=== PATIENT | male | born 1965 | race Caucasian/White ===

== ENCOUNTER 2020-12-04 19:02 | Emergency (ER) | payer MEDICAID, SELFPAY ==
--- NOTE | ~2020-12-04 | XR_ITS ---
EXAMINATION: XR ANKLE, LEFT CLINICAL INFORMATION: Left ankle pain. Difficulty ambulating. COMPARISON: None TECHNIQUE: AP, lateral, and mortise views of the left ankle. FINDINGS: The bony alignments are intact. The cortices are intact. Enthesopathy is noted at the insertional site of the Achilles tendon to the calcaneus and at the insertional site of the plantar fascia to the calcaneus. XR/XR ankle LT 2V IMPRESSION: 1. Posterior calcaneal spur and enthesopathy at the insertional site of the Achilles tendon to the calcaneus. 2. Radiographically unremarkable left ankle.
[2020-12-04 19:04] VITALS: BP 179/104; PULSE 73; RESP 18; TEMP 36.7; O2SAT 98; BMI 30.4
--- NOTE | 2020-12-04 20:26 | ED_ITS ---
HPI - Extremity Problem General Chief complaint: Extremity Problem Stated complaint: leg pain Time Seen by Provider: 12/04/20 20:26 Source: patient Limitations: no limitations History of Present Illness HPI Narrative: This is a patient who has noted pain in his left heel area upon weight-bearing for the last few days. Says the pain is not there when he does not have weight on the heel that is severe when he is bearing weight. He denies any injury. He denies a redness or swelling. He has history of hypertension and hypercholesterolemia Related Data Previous Rx's Medication Instructions Recorded ibuprofen 800 mg PO Q8H PRN #30 tab 12/04/20 Allergies Allergy/AdvReac Type Severity Reaction Status Date / Time No Known Allergies Allergy Verified 12/04/20 19:07 Review of Systems Constitutional: Constitutional: Denies fever(s) Musculoskeletal: Comments: Left heel pain PMFSH Past Medical History Medical History (Updated 12/04/20 @ 20:31 by Owen Giles MD) Broken foot HTN (hypertension) Social History Social History Advance Directives: No Physical Exam Vital Signs: Vital Signs: Last Vital Signs Temp 98.0 F 12/04/20 19:04 Pulse 73 12/04/20 19:04 Resp 18 12/04/20 19:04 BP 179/104 H 12/04/20 19:04 Pulse Ox 98 12/04/20 19:04 Body Mass Index 30.4 MDM - Extremity (Nontraumatic) MDM Narrative Medical decision making narrative: Patient with pain to his left heel area, nontraumatic. No erythema, warmth, swelling. X-ray did show a bone spur the insertion of the Achilles tendon, as well as 1 on the underside of the heel. Will have the patient be nonweightbearing for 7 days and take ibuprofen, follow- up with orthopedics Imaging Data Left ankle: Radiologist's impression: The bony alignments are intact. The cortices are intact. Enthesopathy is noted at the insertional site of the Achilles tendon to the calcaneus and at the insertional site of the plantar fascia to the calcaneus. XR/XR ankle LT 2V IMPRESSION: 1. Posterior calcaneal spur and enthesopathy at the insertional site of the Achilles tendon to the calcaneus. 2. Radiographically unremarkable left ankle. Discharge Plan Discharge Clinical Impression: Bone spur of left foot Patient Disposition: Home, Self-Care Additional Instructions: Use the crutches to avoid weight-bearing for the next 5-7 days. Take ibuprofen as prescribed. Follow-up with orthopedics. Prescriptions: New ibuprofen 800 mg tablet 800 mg PO Q8H PRN (Reason: pain) Qty: 30 RF: 0 Referrals: Lela Dumont MD [Physician] - 2 days (Call Sunday for an appointment in the next week or so) Interventions: ED Discharge Assessment Last Done: 12/04/20 20:41 Discharge Date/Time: 12/04/20 20:44
== END 2020-12-04 20:44 | disposition home or self-care (01) ==
LOC: HO.ED 20:31
PROVIDERS: Emergency Provider Emergency Medicine
DX: M77.52 Other enthesopathy of left foot and ankle (principal); I10 Essential (primary) hypertension
CPT/HCPCS: 73600; 99283

== ENCOUNTER 2021-05-25 15:05 | Emergency (ER) | payer MEDICAID, SELFPAY ==
[2021-05-25 17:27] VITALS: BP 222/123; PULSE 96; RESP 16; TEMP 36.7; O2SAT 96; BMI 44.1
[2021-05-25 18:05] LABS: MANUAL DIFF FLAG NO
[2021-05-25 18:06] LABS: Basophils Percent Auto 0.1 % (0-2); Hematocrit 45.5 % (42.0-52.0); Hemoglobin 14.9 g/dl (14.0-18.0); Imm Gran Abs Auto 0.04 X10*3/uL (0.00-0.03); Imm Gran Pct Auto 0.5 % (0.0-0.4); Lymphocytes Absolute Auto 0.5 X10*3/uL (1.2-4.9); Mean Corpuscular HGB Conc 32.7 g/dl (31.0-36.0); Mean Corpuscular Hemoglobin 29.3 pg (27.0-33.0); Mean Corpuscular Volume 89.4 fL (80.0-98.0); Mean Platelet Volume 10.1 fL (9.4-12.4); Monocytes Absolute Auto 0.8 X10*3/uL (0.1-1.2); Monocytes Percent Auto 10.4 % (2-11); Neutrophils Absolute Auto 6.6 x10*3/uL (2.0-8.3); Platelet Count 237 X10*3/uL (160-400); Red Blood Count 5.09 X10*6/uL (4.60-5.80); Red Cell Distribution Width 12.2 % (11.0-16.0)
[2021-05-25 18:20] LABS: Anion Gap 11 (12-20); Blood Urea Nitrogen 12 mg/dL (9-16); Calcium 9.7 mg/dL (8.4-10.2); Carbon Dioxide 28 mmol/L (22-29); Chloride 103 mmol/L (96-108); Creatinine Clr Calc Pharmacy 102.8; Estimated Glomerular Filt Rate > 60; Glucose Random 98 mg/dL (60-115); Sodium 138 mmol/L (135-145)
== END 2021-05-26 00:31 | disposition left against medical advice (07) ==
LOC: HO.ED 05-26 00:22
PROVIDERS: Emergency Provider Emergency Medicine
DX: M54.50 Low back pain, unspecified (principal); I10 Essential (primary) hypertension; Z79.899 Other long term (current) drug therapy; Z91.14 Patient's other noncompliance with medication regimen
CPT/HCPCS: 36415; 80048; 85025; 99282; 99283

== ENCOUNTER 2022-05-29 15:37 | Emergency (ER) | payer MEDICAID, SELFPAY ==
[2022-05-29 17:16] VITALS: BP 218/113; PULSE 64; RESP 16; TEMP 36.4; O2SAT 98; BMI 29.8
--- NOTE | 2022-05-29 17:16 | ED_ITS ---
HPI - Allergic Reaction General Chief complaint: Skin/Abscess/Foreign Body Stated complaint: rash on back Time Seen by Provider: 05/29/22 17:21 Source: patient Mode of arrival: ambulatory Limitations: no limitations History of Present Illness HPI narrative: 56-year-old male with a past medical history is hypertension although not compliant presenting to the ER with complaints of itchy rash to his lower back that started a few days ago worse today. Denies any new substances. Denies any dizziness, chest pain, change in vision, shortness of breath, nausea/vomiting, abdominal pain, back pain, urinary symptoms or any other symptoms complaints or concerns at this time. Reports he does not remember what blood pressure medication he was on pain MD complaint: other (Rash) Onset (ago): day(s) (Few days) Exposure: unknown Symptoms: rash and itching Severity: mild Treatment prior to arrival: none Previous Allergic Reaction History: none Related Data Previous Rx's Medication Instructions Recorded ibuprofen 800 mg tablet 800 mg PO Q8H PRN pain #30 tabs 12/04/20 hydrocortisone 2.5 % topical 1 appl topical QD-TID PRN skin 05/29/22 ointment irritation #454 grams lisinopril 10 1 tab PO DAILY blood pressure #30 05/29/22 mg-hydrochlorothiazide 12.5 mg tabs tablet prednisone 20 mg tablet 40 mg PO DAILY 5 days #10 tabs 05/29/22 Allergies Allergy/AdvReac Type Severity Reaction Status Date / Time No Known Allergies Allergy Verified 12/04/20 19:07 Review of Systems Review of Systems: Constitutional : No Fever, No Chills , no body aches, no recent illness Head/Face: No facial swelling, No facial redness ENT/Mouth : No oral/throat swelling, No Hoarseness, No Swallowing Difficulty Eyes: No Eye Pain, No Swelling, No Redness Cardiovascular : No Chest Pain, No SOB, No palpitations Respiratory : No Cough, No Sputum, No Wheezing, No Smoke Exposure, No Dyspnea Gastrointestinal : No Nausea, No Vomiting, No Diarrhea, No abdominal Pain Genitourinary : No Dysuria, No Urinary Frequency, No Hematuria Musculoskeletal : No joint pain, No Myalgias, No Joint Swelling Skin : No Skin Lesions, positive rash Neuro : No Weakness, No Numbness, No Headache, No dizziness, No tingling Psych : No Anxiety/Panic, No Depression Heme/Lymph: No Bruising, No Lymphadenopathy Endocrine : No Polyuria, No Polydipsia Denies changes in lotions or detergents. Denies new medications or any changes in medications. Denies drainage from rash. Denies any recent sick contacts or recent travel. Yes all other systems are reviewed and are negative [facility] Past Medical History Attestation statement: The following information was validated with the patient. Source: old records reviewed and nursing notes reviewed Medical History Broken foot HTN (hypertension) Social History Social History Advance Directives: No Advance Directives Information Provided: No Physical Exam ED Vital Signs: Vital Signs - 24 hr 05/29/22 17:16 Temperature 97.5 F Pulse Rate 64 Respiratory Rate 16 Blood Pressure 218/113 H Pulse Oximetry 98 Oxygen Delivery Method Room Air BMI result Body Mass Index 29.8 vital signs have been reviewed as normal and appeared to be correct. Blood pressure 218/113. Heart rate normal. Respiration rate normal. Temperature normal. Oxygen saturation normal. Appearance: Alert. Oriented X3. No acute distress. Head: Normal external exam. Normocephalic. Atraumatic. Eyes: PERRLA. EOMI. Conjunctiva and sclera normal. Eyelids normal. ENT: Pharynx normal. Uvula midline. Moist mucous membranes. No lesions/ulcerations or masses noted on the tongue. Normal voice. No trismus noted. No drooling noted. No muffled voice noted. Neck: Normal inspection. Neck supple. FROM. No adenopathy. Thyroid Normal. No tracheal deviation noted. No crepitus is noted. No meningeal signs. No neck mass noted. No signs of trauma noted. CVS: Normal heart rate and rhythm. Heart sound normal. Pulses normal throughout. No murmurs/rales/gallops. Respiratory: No respiratory distress. Painless inspiration. Breath sounds normal. No wheezes/rales/rhonchi noted. Chest nontender. No crepitus is noted. No signs of trauma noted. No accessory muscle usage noted or decreased air movement noted. No signs of trauma. Abdomen: Soft and nontender. Bowel sounds normal in all 4 quadrants. No distention noted. No organomegaly noted. No visible injury noted. Back: Full range of motion noted. Nontender. Skin: Skin warm and dry. Normal skin color. Normal skin turgor. No rashes/lesions/lacerations noted. Extremities: No lower extremity edema. No calf tenderness is noted. Extremities exhibit normal range of motion and nontender. Neuro: Oriented X 3. No motor deficit. No sensory deficit. Reflexes normal. Normal steady gait. No focal neuro deficits noted. CN's II-XII intact jigar aterally? Vascular: + radial pulses/+ 2 distal pedal pulses/+2 dorsalis pedis b/l. Normal cap refill. No cyanosis noted to upper extremity nails and lower extremity toes nails. Course Course Course Narrative: Patient presenting with eczema like rash to his lower back. Not consistent with shingles. Not anaphylaxis. Not consistent allergic reaction. No signs of infection. Patient most likely eczema. Will DC home with prednisone and steroid cream upon taking his blood pressure he is noted to be hypertensive reports he was supposed to be on blood pressure medication although has not been on the blood pressure medication for a few months. Denies any cardiac related complaints. Reports that he does not want to stay here any longer due to he is not having any dizziness or chest pain or shortness of breath or nausea vomiting or abdominal pain he does not want any labs or imaging at this time. Therefore at this time will DC home with a refill for his blood pressure medication I instructed him that is very important to return if he develops any dizziness and I wanted to take his blood pressure medication once he picks it up from the pharmacy. And to follow up with primary care provider. Patient understands agrees with this plan. Discharge Plan Discharge Clinical Impression: Eczema, High blood pressure Patient Disposition: Home, Self-Care Instructions: Eczema (ED) Prescriptions: New prednisone 20 mg tablet 40 mg PO DAILY 5 Days Qty: 10 0RF hydrocortisone 2.5 % ointment 1 appl topical QD-TID PRN (Reason: skin irritation) Qty: 454 0RF lisinopril-hydrochlorothiazide 10-12.5 mg tablet 1 tab PO DAILY Qty: 30 0RF No Action ibuprofen 800 mg tablet 800 mg PO Q8H PRN (Reason: pain) Qty: 30 0RF Referrals: ED Physician,Generic [Physician] - (your pcp)
--- NOTE | 2022-05-29 18:06 | PC.NURSE ---
PT D/C BY PROVIDER
== END 2022-05-29 18:06 | disposition home or self-care (01) ==
LOC: HO.ED 17:24
PROVIDERS: Emergency Provider Internal Medicine
DX: L30.9 Dermatitis, unspecified (principal); I10 Essential (primary) hypertension; Z91.14 Patient's other noncompliance with medication regimen
CPT/HCPCS: 99281; 99283

== ENCOUNTER 2022-07-02 16:41 | Emergency (ER) | payer MEDICAID, SELFPAY ==
--- NOTE | ~2022-07-02 | CT_ITS ---
EXAMINATION: CT ABDOMEN AND PELVIS WITHOUT CONTRAST CLINICAL INFORMATION: Left lower quadrant pain. Question stone, diverticulitis. COMPARISON: CT dated 02/08/2019 TECHNIQUE: Multidetector volumetric imaging was performed from the superior aspect of the liver through the pubic symphysis. Sagittal and coronal reformatted images were obtained on the technologist's workstation. This CT examination was performed using dose optimization techniques as appropriate, variously including the following: *Automated exposure control *Adjustment of mA and/or kV according to patient size (this includes techniques or standardized protocols for targeted exams where dose is matched to indication/reason for exam; i.e. extremities or head) *Use of iterative reconstruction technique DLP: 623 mGy-cm FINDINGS: LUNG BASES: The visualized lung bases are unremarkable. LIVER, GALLBLADDER, AND BILIARY TREE: The liver is normal in size, shape, and attenuation. No focal hepatic lesion or biliary ductal dilatation is present. The gallbladder is unremarkable with no evidence of radiopaque gallstones, gallbladder wall thickening, or obvious pericholecystic inflammatory changes. PANCREAS: Unremarkable. SPLEEN: Unremarkable. ADRENAL GLANDS: Unremarkable. KIDNEYS AND URETERS: The kidneys are normal in size, shape, and attenuation. No hydronephrosis or hydroureter. A 2 mm calculus is present within the right upper renal pole calyx. No additional calculi. No perinephric stranding. No ureteral calculi. BLADDER: Unremarkable. GASTROINTESTINAL TRACT: Stomach, small bowel, and colon are normal in caliber. No bowel wall thickening or surrounding inflammatory changes. Appendix is normal. No intraperitoneal free fluid or free air. A few colonic diverticula are identified. No evidence of acute diverticulitis. There is a fluid attenuation exophytic left renal cyst. No recommend imaging follow-up. ABDOMINAL WALL: No significant hernia is appreciated. LYMPH NODES: Normal. VASCULAR: Calcific atherosclerosis is present in the abdominal aorta and iliac arteries. PELVIC VISCERA: Unremarkable. OSSEOUS STRUCTURES: Mild osteoarthritis is evident in the hips. There is mild degenerative spondylosis in the lumbar spine CT/CT abdomen pelvis wo IV con IMPRESSION: 1. No acute intra-abdominal or intrapelvic abnormalities. 2. A 2 mm nonobstructing right renal calculus. No evidence of obstructive uropathy. 3. Mild colonic diverticulosis without evidence of acute diverticulitis. Fleischner guidelines were followed.
--- NOTE | 2022-07-02 16:56 | ED_ITS ---
HPI - Abdominal Pain General Chief Complaint: Abdominal Pain <KARLEY Jaimes - Last Filed: 07/02/22 17:03> Stated Complaint: pain in abd <KARLEY Jaimes - Last Filed: 07/02/22 17:03> Time Seen by Provider: 07/02/22 17:48 <KARLEY Jaimes - Last Filed: 07/02/22 17:03> Source: patient <Jethro Sawyer MD - Last Filed: 07/02/22 22:46> Mode of arrival: ambulatory <Jethro Sawyer MD - Last Filed: 07/02/22 22:46> Limitations: no limitations <Jethro Sawyer MD - Last Filed: 07/02/22 22:46> History of Present Illness HPI narrative: Patient with history of kidney stones noticed sudden onset of pain left lower abdomen 2 days ago associated with nausea pain gets worse on ambulation and after eating food normal bowel movements no blood in the stool no hematuria no abdominal distension no fever or chills <Jethro Sawyer MD - Last Filed: 07/02/22 22:46> Related Data Home Medications: Previous Rx's Medication Instructions Recorded ibuprofen 800 mg tablet 800 mg PO Q8H PRN pain #30 tabs 12/04/20 hydrocortisone 2.5 % topical 1 appl topical QD-TID PRN skin 05/29/22 ointment irritation #454 grams lisinopril 10 1 tab PO DAILY blood pressure #30 05/29/22 mg-hydrochlorothiazide 12.5 mg tabs tablet prednisone 20 mg tablet 40 mg PO DAILY 5 days #10 tabs 05/29/22 dicyclomine 20 mg tablet 20 mg PO TID PRN abdominal pain 07/02/22 #20 tabs lisinopril 20 1 tab PO DAILY #90 tabs 07/02/22 mg-hydrochlorothiazide 12.5 mg tablet (Zestoretic) <KARLEY Jaimes - Last Filed: 07/02/22 17:03> Allergies/Adverse Reactions: Allergies Allergy/AdvReac Type Severity Reaction Status Date / Time No Known Allergies Allergy Verified 12/04/20 19:07 <KARLEY Jaimes - Last Filed: 07/02/22 17:03> Review of Systems Review of Systems Yes all other systems are reviewed and are negative <Jethro Sawyer MD - Last Filed: 07/02/22 22:46> [facility] Past Medical History Medical History: Medical History Broken foot HTN (hypertension) <KARLEY Jaimes - Last Filed: 07/02/22 17:03> Social History Social History: Social History Alcohol intake: current Alcohol intake frequency: holidays/special occasions only Alcohol type: beer Smoked in Last 30 Days: No Use of substances other than those prescribed or required for medical reasons: No Advance Directives: No Advance Directives Information Provided: No <KARLEY Jaimes - Last Filed: 07/02/22 17:03> Physical Exam ED Vital Signs: Vital Signs - 24 hr 07/02/22 16:58 07/02/22 18:55 07/02/22 19:58 Temperature 97.5 F 96.9 F 98.2 F Pulse Rate 73 63 65 Respiratory Rate 18 16 18 Blood Pressure 239/109 H 174/98 H 229/118 H Pulse Oximetry 96 96 98 Oxygen Delivery Method Room Air Room Air Room Air 07/02/22 21:18 07/02/22 22:35 Temperature Pulse Rate 57 Respiratory Rate 18 Blood Pressure 195/108 H 194/98 H Pulse Oximetry 99 Oxygen Delivery Method Room Air BMI result Body Mass Index 30.4 <KARLEY Jaimes - Last Filed: 07/02/22 17:03> Vital Signs - 24 hr 07/02/22 16:58 07/02/22 18:55 07/02/22 19:58 Temperature 97.5 F 96.9 F 98.2 F Pulse Rate 73 63 65 Respiratory Rate 18 16 18 Blood Pressure 239/109 H 174/98 H 229/118 H Pulse Oximetry 96 96 98 Oxygen Delivery Method Room Air Room Air Room Air 07/02/22 21:18 07/02/22 22:35 Temperature Pulse Rate 57 Respiratory Rate 18 Blood Pressure 195/108 H 194/98 H Pulse Oximetry 99 Oxygen Delivery Method Room Air BMI result Body Mass Index 30.4 <Jethro Sawyer MD - Last Filed: 07/02/22 22:46> Appearance: Alert. Oriented X3. No acute distress. Eyes: No pallor or icterus ENT: Pharynx normal. Oral Mucosa moist Neck: Normal inspection. Neck supple. CVS: Normal heart rate and rhythm. Pulses normal. Respiratory: No respiratory distress. Equal air entry bilateral, no wheezing/rales/rhonchi Abdomen: Soft , deep tenderness left lower quadrant no guarding or rebound tenderness Bowel sounds are present, no mass palpable, no CVA tenderness Skin: Skin warm and dry. Normal skin color. Normal skin turgor. Extremities: No lower extremity edema. Neuro: Oriented X 3. No motor deficit. <Jethro Sawyer MD - Last Filed: 07/02/22 22:46> Course Course Course Narrative: RME--56yo M w/PMHx HTN c/o LLQ abd pain since . Denies fever, chills, N/V/D, dysuria, hematuria, flank pain HTNsive in triage, reports medication noncompliance. Denies CP or GA. Abd soft with LLQ and suprapubic ttp on exam, No CVAT EKG, labs, UA, CT AP ordered <KARLEY Jaimes - Last Filed: 07/02/22 17:03> Medical Decision Making Medical Decision Making [facility] Narrative: Patient's CT scan showed : IMPRESSION: 1.? No acute intra-abdominal or intrapelvic abnormalities. 2.? A 2 mm nonobstructing right renal calculus. No evidence of obstructive uropathy. 3.? Mild colonic diverticulosis without evidence of acute diverticulitis. Nonspecific pain with normal WBC count normal urine possible diverticulosis as a cause of pain discharge patient home follow up with PCP ? 1999 At time of discharge patient noticed to be hypertensive with blood pressure 229/118 with pulse rate of 68 patient states she has a history of hypertension but has stopped taking medication for last few years no headache no end-organ damage vision changes did start an IV labetalol 20 mg patient blood pressure improved to 194/98 was given p.o. lisinopril <Jethro Sawyer MD - Last Filed: 07/02/22 22:46> Lab Data [facility] Lab Attestation statement: I reviewed the patient's lab results. <Jethro Sawyer MD - Last Filed: 07/02/22 22:46> Result Diagrams: 07/02/22 17:39 07/02/22 17:39 <KARLEY Jaimes - Last Filed: 07/02/22 17:03> Labs: Lab Results 07/02/22 07/02/22 07/02/22 Range/Units 17:39 17:39 17:42 WBC 8.2 (4.8-10.8) X10*3/uL RBC 4.72 (4.60-5.80) X10*6/uL Hgb 13.5 L (14.0-18.0) g/dl Hct 41.7 L (42.0-52.0) % MCV 88.3 (80.0-98.0) fL MCH 28.6 (27.0-33.0) pg MCHC 32.4 (31.0-36.0) g/dl RDW 12.1 (11.0-16.0) % Plt Count 268 (160-400) X10*3/uL MPV 10.2 (9.4-12.4) fL Immature Gran % (Auto) 0.4 (0.0-0.4) % Neut % (Auto) 67.8 (45-73) % Lymph % (Auto) 17.3 L (20-40) % [place] % (Auto) 12.1 H (2-11) % Eos % (Auto) 2.0 (0-4) % Baso % (Auto) 0.4 (0-2) % Lymph # (Auto) 1.4 (1.2-4.9) X10*3/uL [place] # (Auto) 1.0 (0.1-1.2) X10*3/uL Eos # (Auto) 0.2 (0.0-0.4) X10*3/uL Baso # (Auto) 0.0 (0.0-0.2) X10*3/uL Abs Immat Gran (auto) 0.03 (0.00-0.03) X10*3/uL Absolute Neuts (auto) 5.6 (2.0-8.3) x10*3/uL Absolute Nucleated RBC 0.000 (0.0-0.012) X10*3/uL Nucleated RBC % (auto) 0.0 (0.0-0.2) /100WBC Sodium 143 (135-145) mmol/L Potassium 3.6 (3.3-5.1) mmol/L Chloride 107 (96-108) mmol/L Carbon Dioxide 25 (22-29) mmol/L Anion Gap 15 (12-20) BUN 13 (9-16) mg/dL Creatinine 0.94 (0.5-1.4) mg/dL Estim Creat Clear Calc 93.6 Estimated GFR > 60 Random Glucose 94 (60-115) mg/dL Calcium 9.5 (8.4-10.2) mg/dL Magnesium 1.9 (1.6-2.6) mg/dL Total Bilirubin 0.7 (0.0-1.0) mg/dL Direct Bilirubin 0.2 (0.0-0.5) mg/dL AST 15 (5-37) U/L ALT 11 (0-40) U/L Alkaline Phosphatase 82 (39-117) U/L Total Protein 7.0 (6.5-8.0) g/dL Albumin 4.0 (3.5-5.0) g/dL Lipase 15 (8-78) U/L Urine Color Yellow Urine Appearance Clear Urine pH 5.5 (5.0-9.0) Ur Specific [place] 1.025 (1.005-1.025) Urine Protein Trace (Neg-Trace) mg/dL Urine Glucose (UA) Negative (Negative) mg/dL Urine Ketones Negative (Negative) mg/dL Urine Blood Negative (Negative) Urine Nitrite Negative (Negative) Ur Leukocyte Esterase Negative (Negative) <KARLEY Jaimes - Last Filed: 07/02/22 17:03> Lab Results 07/02/22 07/02/22 07/02/22 Range/Units 17:39 17:39 17:42 WBC 8.2 (4.8-10.8) X10*3/uL RBC 4.72 (4.60-5.80) X10*6/uL Hgb 13.5 L (14.0-18.0) g/dl Hct 41.7 L (42.0-52.0) % MCV 88.3 (80.0-98.0) fL MCH 28.6 (27.0-33.0) pg MCHC 32.4 (31.0-36.0) g/dl RDW 12.1 (11.0-16.0) % Plt Count 268 (160-400) X10*3/uL MPV 10.2 (9.4-12.4) fL Immature Gran % (Auto) 0.4 (0.0-0.4) % Neut % (Auto) 67.8 (45-73) % Lymph % (Auto) 17.3 L (20-40) % [place] % (Auto) 12.1 H (2-11) % Eos % (Auto) 2.0 (0-4) % Baso % (Auto) 0.4 (0-2) % Lymph # (Auto) 1.4 (1.2-4.9) X10*3/uL [place] # (Auto) 1.0 (0.1-1.2) X10*3/uL Eos # (Auto) 0.2 (0.0-0.4) X10*3/uL Baso # (Auto) 0.0 (0.0-0.2) X10*3/uL Abs Immat Gran (auto) 0.03 (0.00-0.03) X10*3/uL Absolute Neuts (auto) 5.6 (2.0-8.3) x10*3/uL Absolute Nucleated RBC 0.000 (0.0-0.012) X10*3/uL Nucleated RBC % (auto) 0.0 (0.0-0.2) /100WBC Sodium 143 (135-145) mmol/L Potassium 3.6 (3.3-5.1) mmol/L Chloride 107 (96-108) mmol/L Carbon Dioxide 25 (22-29) mmol/L Anion Gap 15 (12-20) BUN 13 (9-16) mg/dL Creatinine 0.94 (0.5-1.4) mg/dL Estim Creat Clear Calc 93.6 Estimated GFR > 60 Random Glucose 94 (60-115) mg/dL Calcium 9.5 (8.4-10.2) mg/dL Magnesium 1.9 (1.6-2.6) mg/dL Total Bilirubin 0.7 (0.0-1.0) mg/dL Direct Bilirubin 0.2 (0.0-0.5) mg/dL AST 15 (5-37) U/L ALT 11 (0-40) U/L Alkaline Phosphatase 82 (39-117) U/L Total Protein 7.0 (6.5-8.0) g/dL Albumin 4.0 (3.5-5.0) g/dL Lipase 15 (8-78) U/L Urine Color Yellow Urine Appearance Clear Urine pH 5.5 (5.0-9.0) Ur Specific [place] 1.025 (1.005-1.025) Urine Protein Trace (Neg-Trace) mg/dL Urine Glucose (UA) Negative (Negative) mg/dL Urine Ketones Negative (Negative) mg/dL Urine Blood Negative (Negative) Urine Nitrite Negative (Negative) Ur Leukocyte Esterase Negative (Negative) <Jethro Sawyer MD - Last Filed: 07/02/22 22:46> Radiology Impression Discussion of test interpretation with radiology: I have reviewed the radiologist's reading. <Jethro Sawyer MD - Last Filed: 07/02/22 22:46> Radiologist Impression: CT/CT abdomen pelvis wo IV con IMPRESSION: 1.? No acute intra-abdominal or intrapelvic abnormalities. 2.? A 2 mm nonobstructing right renal calculus. No evidence of obstructive uropathy. 3.? Mild colonic diverticulosis without evidence of acute diverticulitis. ? <Jethro Sawyer MD - Last Filed: 07/02/22 22:46> Medications Administered Discontinued Medications Generic Name Dose Route Start Last Admin Trade Name Sheltonq PRN Reason Stop Dose Admin Labetalol HCl 20 mg 07/02/22 19:59 07/02/22 20:08 Labetalol Hcl 100 Mg/20 Ml Vial IVPUSH 07/02/22 20:00 20 mg ONCE ONE Administration Lisinopril 20 mg 07/02/22 21:19 07/02/22 21:23 Lisinopril 20 Mg Tablet PO 07/02/22 21:20 20 mg ONCE ONE Administration Protocol Oxycodone HCl 5 mg 07/02/22 17:57 07/02/22 18:52 Oxycodone Hcl Immed Release 5 Mg Tablet PO 07/02/22 17:58 5 mg ONCE ONE Administration <KARLEY Jaimes - Last Filed: 07/02/22 17:03> Medications Administered Discontinued Medications Generic Name Dose Route Start Last Admin Trade Name Freq PRN Reason Stop Dose Admin Labetalol HCl 20 mg 07/02/22 19:59 07/02/22 20:08 Labetalol Hcl 100 Mg/20 Ml Vial IVPUSH 07/02/22 20:00 20 mg ONCE ONE Administration Lisinopril 20 mg 07/02/22 21:19 07/02/22 21:23 Lisinopril 20 Mg Tablet PO 07/02/22 21:20 20 mg ONCE ONE Administration Protocol Oxycodone HCl 5 mg 07/02/22 17:57 07/02/22 18:52 Oxycodone Hcl Immed Release 5 Mg Tablet PO 07/02/22 17:58 5 mg ONCE ONE Administration <Jethro Sawyer MD - Last Filed: 07/02/22 22:46> Discharge Plan Discharge Clinical Impression: Abdominal pain, Hypertension <KARLEY Jaimes - Last Filed: 07/02/22 17:03> Patient Disposition: Home, Self-Care <KARLEY Jaimes - Last Filed: 07/02/22 17:03> Instructions: Abdominal Pain (ED), Hypertension (ED) <KARLEY Jaimes - Last Filed: 07/02/22 17:03> Additional Instructions: Cause of pain is not very clear Take pain medication as prescribed and follow with PCP Report to the ER if pain gets worse/vomiting/high fever Decrease salt intake Start taking blood pressure medication as prescribed Your blood pressure should be less than 135/85 take blood pressure before taking the medicine morning and before going to bed <KARLEY Jaimes - Last Filed: 07/02/22 17:03> Prescriptions: New dicyclomine 20 mg tablet 20 mg PO TID PRN (Reason: abdominal pain) Qty: 20 0RF lisinopril-hydrochlorothiazide [Zestoretic] 20-12.5 mg tablet 1 tab PO DAILY Qty: 90 1RF No Action ibuprofen 800 mg tablet 800 mg PO Q8H PRN (Reason: pain) Qty: 30 0RF prednisone 20 mg tablet 40 mg PO DAILY 5 Days Qty: 10 0RF hydrocortisone 2.5 % ointment 1 appl topical QD-TID PRN (Reason: skin irritation) Qty: 454 0RF lisinopril-hydrochlorothiazide 10-12.5 mg tablet 1 tab PO DAILY Qty: 30 0RF <KARLEY Jaimes - Last Filed: 07/02/22 17:03>
[2022-07-02 16:58] VITALS: BP 239/109; PULSE 73; RESP 18; TEMP 36.4; O2SAT 96; BMI 30.4
--- NOTE | 2022-07-02 17:01 | ECG_ITS ---
Test Reason : hypertension Blood Pressure : / mmHG Vent. Rate : 066 BPM Atrial Rate : 066 BPM P-R Int : 152 ms QRS Dur : 090 ms QT Int : 400 ms P-R-T Axes : 036 -17 -48 degrees QTc Int : 419 ms Normal sinus rhythm Minimal voltage criteria for LVH, may be normal variant ( R in aVL ) Nonspecific T wave abnormality Abnormal ECG When compared with ECG of 24-NOV-2017 19:48, T wave inversion now evident in Lateral leads Referred By: Pearl Velasco Electronically Signed By:RUBEN DE OLIVEIRA MD
[2022-07-02 17:47] LABS: MANUAL DIFF FLAG NO
[2022-07-02 17:48] LABS: Basophils Percent Auto 0.4 % (0-2); Eosinophils Absolute Auto 0.2 X10*3/uL (0.0-0.4); Hematocrit 41.7 % (42.0-52.0); Hemoglobin 13.5 g/dl (14.0-18.0); Imm Gran Abs Auto 0.03 X10*3/uL (0.00-0.03); Imm Gran Pct Auto 0.4 % (0.0-0.4); Lymphocytes Absolute Auto 1.4 X10*3/uL (1.2-4.9); Lymphocytes Percent Auto 17.3 % (20-40); Mean Corpuscular HGB Conc 32.4 g/dl (31.0-36.0); Mean Corpuscular Hemoglobin 28.6 pg (27.0-33.0); Mean Corpuscular Volume 88.3 fL (80.0-98.0); Mean Platelet Volume 10.2 fL (9.4-12.4); Monocytes Percent Auto 12.1 % (2-11); Neutrophils Absolute Auto 5.6 x10*3/uL (2.0-8.3); Neutrophils Percent Auto 67.8 % (45-73); Platelet Count 268 X10*3/uL (160-400); Red Blood Count 4.72 X10*6/uL (4.60-5.80); Red Cell Distribution Width 12.1 % (11.0-16.0); White Blood Count 8.2 X10*3/uL (4.8-10.8)
[2022-07-02 17:53] LABS: Appearance Urine Clear; Color Urine Yellow; Glucose Urine UA Negative (Negative); Leukocyte Esterase Urine Negative (Negative); Nitrite Urine Negative (Negative); PH 5.5 (5.0-9.0); Specific Gravity - Urine 1.025 (1.005-1.025); Urine Blood Negative (Negative); Urine Ketones Negative (Negative); Urine Protein Trace mg/dL (Neg-Trace)
[2022-07-02 18:16] LABS: Alanine Aminotransferase 11 U/L (0-40); Alkaline Phosphatase 82 U/L (39-117); Anion Gap 15 (12-20); Aspartate Amino Transferase 15 U/L (5-37); Bilirubin Direct 0.2 mg/dL (0.0-0.5); Bilirubin Total 0.7 mg/dL (0.0-1.0); Blood Urea Nitrogen 13 mg/dL (9-16); Calcium 9.5 mg/dL (8.4-10.2); Carbon Dioxide 25 mmol/L (22-29); Chloride 107 mmol/L (96-108); Creatinine Clr Calc Pharmacy 93.6; Estimated Glomerular Filt Rate > 60; Glucose Random 94 mg/dL (60-115); Lipase 15 U/L (8-78); Magnesium 1.9 mg/dL (1.6-2.6); Potassium 3.6 mmol/L (3.3-5.1); Sodium 143 mmol/L (135-145)
[2022-07-02] MEDS: oxyCODONE HCl Immed Release 5 MG TABLET PO (18:52)
[2022-07-02 18:55] VITALS: BP 174/98; PULSE 63; RESP 16; TEMP 36.1; O2SAT 96
[2022-07-02 19:58] VITALS: BP 229/118; PULSE 65; RESP 18; TEMP 36.8; O2SAT 98
[2022-07-02] MEDS: Labetalol HCL 100 MG/20 ML VIAL 20 MG IVPUSH (20:08)
--- NOTE | 2022-07-02 20:11 | PC.NURSE ---
Patient is alert and oriented x3. Patient is afebrile. He denies any pain at [facility]. BP 229/118. P 65, O2 Sat 98% RA. Patient denies headache/chest pain, also denies issues with vision, does not feel heart palpitations. Dr. Sawyer notified, new order obtained for Labetalol 20 mg IV push. 20 G IV line established in R AC, Labetalol administered per JUL. Call carney within patient's reach, patient instructed in use.
[2022-07-02 21:18] VITALS: BP 195/108; PULSE 57; RESP 18; O2SAT 99
[2022-07-02] MEDS: lisinopriL 20 MG TABLET PO (21:23)
[2022-07-02 22:35] VITALS: BP 194/98
--- NOTE | 2022-07-02 22:57 | PC.NURSE ---
Patient's BP with some improvement 190's/100's. P 57-65. Patient continues to deny headache, pain on the back of the head/chest pain/heart palpitations/issues with vision. Dr. Sawyer updated. Per MD patient to be d/c home: abdominal pain resolved. Patient BP elevated, however he is asymptomatic. Patient informed of plan for discharge home, patient is in agreement, IV line removed, and patient verbalized discharge instructions including low sodium/low cholesterol diet, importance of medication complains, daily BP monitoring with parameters to report to MD/EMS.
== END 2022-07-02 23:09 | disposition home or self-care (01) ==
PROVIDERS: Physician Assistant; Emergency Provider Internal Medicine
DX: N20.0 Calculus of kidney (principal); R10.32 Left lower quadrant pain; I10 Essential (primary) hypertension; Z79.899 Other long term (current) drug therapy
CPT/HCPCS: 36415; 74176; 80048; 80076; 81003; 83690; 83735; 85025; 93005; 96361; 96374; 99285

== ENCOUNTER 2023-02-25 21:02 | Emergency (ER) | payer MEDICAID, SELFPAY ==
--- NOTE | ~2023-02-25 | XR_ITS ---
EXAMINATION: XR RIBS, RIGHT CLINICAL INFORMATION: Right lateral pain for one week, no trauma COMPARISON: 07/10/2019 TECHNIQUE: 3 views of the right ribs were obtained. FINDINGS: The lungs are clear with no focal consolidation. No evidence of pneumothorax, pulmonary edema, or pleural effusions. Cardiac size is within normal limits. Tortuous thoracic aorta. No displaced fracture is seen. XR/XR ribs RT min 3V w CXR1V IMPRESSION: No acute findings identified.
[2023-02-25 21:04] VITALS: BP 197/111; PULSE 74; RESP 16; TEMP 36.8; O2SAT 96; BMI 30.4
--- NOTE | 2023-02-25 23:09 | ED.BACK ---
HPI - Back Pain/Injury General Chief Complaint: Back Pain/Injury Stated Complaint: back pain, no injury Time Seen by Provider: 02/25/23 22:56 Source: patient and family Mode of arrival: ambulatory Limitations: no limitations History of Present Illness HPI Narrative: 57 yo male with hx of HTN and not compliant with medications c/o R rib pain atraumatic worse with movements - and lifting. He states it came out of nowhere no numbness, tingling weakness, no rash, no fevers, cough or any other concerns. MD elicited complaint: back pain Pertinent past history: prior back pain Onset (ago): week(s) (1) Timing: constant Severity: moderate Similar Symptoms Previously: Yes Quality: throbbing Location: thoracic spine Radiation: none Exacerbating factors: movement Relieving factors: immobilization Context: unknown Associated symptoms: denies other symptoms Work related injury: No Related Data Previous Rx's Medication Instructions Recorded ibuprofen 800 mg tablet 800 mg PO Q8H PRN pain #30 tabs 12/04/20 hydrocortisone 2.5 % topical 1 appl topical QD-TID PRN skin 05/29/22 ointment irritation #454 grams lisinopril 10 1 tab PO DAILY blood pressure #30 05/29/22 mg-hydrochlorothiazide 12.5 mg tabs tablet prednisone 20 mg tablet 40 mg (2 x 20 mg) PO DAILY 5 days 05/29/22 #10 tabs dicyclomine 20 mg tablet 20 mg PO TID PRN abdominal pain 07/02/22 #20 tabs lisinopril 20 1 tab PO DAILY #90 tabs 07/02/22 mg-hydrochlorothiazide 12.5 mg tablet (Zestoretic) cyclobenzaprine 10 mg tablet 10 mg PO TID PRN muscle spasm #14 02/26/23 tabs lidocaine 5 % topical patch 1 patch topical DAILY #30 ea 02/26/23 lisinopril 20 mg tablet 20 mg PO DAILY #30 tabs 02/26/23 Allergies Allergy/AdvReac Type Severity Reaction Status Date / Time No Known Allergies Allergy Verified 12/04/20 19:07 Review of Systems Review of Systems: Constitutional : No Weight loss, No Fever, No Chills, ENT/Mouth : No Hearing loss, No Ear Pain, No Nasal Congestion, No Sinus Pain, No Hoarseness, No sore throat, No Rhinorrhea, No Swallowing Difficulty Cardiovascular : No Chest Pain, No SOB Respiratory : No Cough, No Dyspnea Gastrointestinal : No Nausea, No Vomiting, No Diarrhea, No abdominal Pain, No Hematochezia, No Melena Genitourinary : No Dysuria, No Urinary Frequency, No Hematuria, No Urinary Incontinence, Musculoskeletal : positive back pain Skin : No Skin Lesions, No rash Neuro : No Weakness, No Numbness, No Paresthesias, no loss of bowel or bladder incontinence, no saddle anesthesia All other systems reviewed and are negative [facility] Past Medical History Attestation statement: The following information was validated with the patient. Source: old records reviewed Medical History Broken foot HTN (hypertension) Social History Social History (Updated 02/25/23 @ 23:10 by Vy Up DO) Alcohol intake: current Alcohol intake frequency: does not drink Alcohol type: beer Patient Tobacco Use Status: Tobacco use Unknown Smoked in Last 30 Days: No Use of substances other than those prescribed or required for medical reasons: No Advance Directives: No Advance Directives Information Provided: No Physical Exam Vital Signs: Vital Signs: Last Vital Signs Temp 98.0 F 02/25/23 23:57 Pulse 58 02/25/23 23:57 Resp 18 02/25/23 23:57 BP 203/117 H 02/25/23 23:57 Pulse Ox 96 02/25/23 23:57 O2 Del Method Room Air 02/25/23 23:57 BMI result Body Mass Index 30.4 Appearance: Alert. Oriented X3. No acute distress. Eyes: Pupils equal, round and reactive to light. ENT: Pharynx normal. Neck: Normal inspection. Neck supple. CVS: Normal heart rate and rhythm. Pulses normal. Respiratory: No respiratory distress. Breath sounds normal. Abdomen: Soft and nontender. Back: R posterior lateral ribs hurts to move and touch no crepitus felt no rash seen touching and moving reproduces pain Skin: Skin warm and dry. Normal skin color. Normal skin turgor. Extremities: No lower extremity edema. Neuro: Oriented X 3. No motor deficit. No sensory deficit. Medications Administered Discontinued Medications Generic Name Dose Route Start Last Admin Trade Name Freq PRN Reason Stop Dose Admin Hydrocodone Bitart/Acetaminophen 1 tab 02/25/23 23:07 02/25/23 23:40 Hydrocodone Bit/Acetam 5/325 Tablet PO 02/25/23 23:08 1 tab ONCE ONE Administration Cyclobenzaprine HCl 10 mg 02/25/23 23:07 02/25/23 23:40 Cyclobenzaprine Hcl 10 Mg Tablet PO 02/25/23 23:08 10 mg ONCE ONE Administration Lisinopril 20 mg 02/26/23 00:03 02/26/23 00:12 Lisinopril 20 Mg Tablet PO 02/26/23 00:04 20 mg ONCE ONE Administration Protocol Medical Decision Making Medical Decision Making [facility] Narrative: 57 yo male hx of HTN here with back pain worse with movements no b/b incontinence no saddle anesthesia no rash no URI symptoms he is not hypoxic or tachycardic and no signs of DVT to suggest VTE at this time UA and rib xray ordered. He has no abdominal ttp it seems MSK in nature Differential Diagnosis Differential Diagnoses: The differential diagnosis associated with the presentation includes MSK, rib fracture asymptomatic HTN Admission/Observation Consideration of admission/observation: Escalation of care including admission/observation considered asymptomatic HTN, labs stable pain improved can be managed as outpatient Lab Data [facility] Lab Attestation statement: I reviewed the patient's lab results. 02/25/23 23:13 02/25/23 23:13 Labs: Lab Results 02/25/23 02/25/23 Range/Units 23:13 23:15 WBC 8.5 (4.8-10.8) X10*3/uL RBC 4.55 L (4.60-5.80) X10*6/uL Hgb 13.3 L (14.0-18.0) g/dl Hct 40.3 L (42.0-52.0) % MCV 88.6 (80.0-98.0) fL MCH 29.2 (27.0-33.0) pg MCHC 33.0 (31.0-36.0) g/dl RDW 12.2 (11.0-16.0) % Plt Count 267 (160-400) X10*3/uL MPV 10.1 (9.4-12.4) fL Immature Gran % (Auto) 0.2 (0.0-0.4) % Neut % (Auto) 66.1 (45-73) % Lymph % (Auto) 19.7 L (20-40) % Holmes % (Auto) 11.3 H (2-11) % Eos % (Auto) 2.3 (0-4) % Baso % (Auto) 0.4 (0-2) % Lymph # (Auto) 1.7 (1.2-4.9) X10*3/uL Holmes # (Auto) 1.0 (0.1-1.2) X10*3/uL Eos # (Auto) 0.2 (0.0-0.4) X10*3/uL Baso # (Auto) 0.0 (0.0-0.2) X10*3/uL Abs Immat Gran (auto) 0.02 (0.00-0.03) X10*3/uL Absolute Neuts (auto) 5.6 (2.0-8.3) x10*3/uL Absolute Nucleated RBC 0.000 (0.0-0.012) X10*3/uL Nucleated RBC % (auto) 0.0 (0.0-0.2) /100WBC Sodium 141 (135-145) mmol/L Potassium 3.7 (3.3-5.1) mmol/L Chloride 108 (96-108) mmol/L Carbon Dioxide 23 (22-29) mmol/L Anion Gap 14 (12-20) BUN 14 (9-16) mg/dL Creatinine 1.04 (0.5-1.4) mg/dL Estim Creat Clear Calc 83.6 Estimated GFR > 60 Random Glucose 85 (60-115) mg/dL Calcium 9.7 (8.4-10.2) mg/dL Urine Color Yellow Urine Appearance Clear Urine pH 5.5 (5.0-9.0) Ur Specific [place] 1.025 (1.005-1.025) Urine Protein Trace (Neg-Trace) mg/dL Urine Glucose (UA) Negative (Negative) mg/dL Urine Ketones Trace (Negative) mg/dL Urine Blood Negative (Negative) Urine Nitrite Negative (Negative) Ur Leukocyte Esterase Negative (Negative) Urine RBC 0-2 (0-2) /HPF Urine WBC 0-5 (0-5) /HPF Ur Squamous Epith Cells 0-2 (0-2) /HPF Urine Bacteria None Seen (None Seen) Hyaline Casts 0-2 (0-2) /LPF Independent Interpretation I performed an independent interpretation of an: Plain X-Ray (normal) Radiology Impression Discussion of test interpretation with radiology: I have reviewed the radiologist's reading. Independent Historian Clinical information obtained from an independent historian. History obtained from or confirmed by: Spouse External Record Review External record reviewed: Inpatient record Prescription Management I considered prescription management with: Pain Medication and Other Chronic Conditions Patient?s care impacted by: Hypertension Discharge Plan Discharge Clinical Impression: Thoracic back pain Qualifiers: Chronicity: acute Back pain laterality: right Qualified Code(s): M54.6 - Pain in thoracic spine Hypertension Qualifiers: Hypertension type: unspecified Qualified Code(s): I10 - Essential (primary) hypertension Patient Disposition: Home, Self-Care Instructions: Thoracic Pain (ED), Chronic Hypertension (ED) Additional Instructions: return for worsening symptoms, fevers, vomiting, rash, numbness, weakness, tingling, or any other concerns, cough, fevers. your xray and blood work was normal. take medications as needed for pain. TAKE YOUR BLOOD PRESSURE MEDICATIONS Prescriptions: New cyclobenzaprine 10 mg tablet 10 mg PO TID PRN (Reason: muscle spasm) Qty: 14 0RF lidocaine 5 % adhesive patch,medicated 1 patch topical DAILY Qty: 30 0RF Rx Instructions: leave on most painful area for up to 12 hrs lisinopril 20 mg tablet 20 mg PO DAILY Qty: 30 0RF No Action ibuprofen 800 mg tablet 800 mg PO Q8H PRN (Reason: pain) Qty: 30 0RF prednisone 20 mg tablet 40 mg PO DAILY 5 Days Qty: 10 0RF hydrocortisone 2.5 % ointment 1 appl topical QD-TID PRN (Reason: skin irritation) Qty: 454 0RF lisinopril-hydrochlorothiazide 10-12.5 mg tablet 1 tab PO DAILY Qty: 30 0RF dicyclomine 20 mg tablet 20 mg PO TID PRN (Reason: abdominal pain) Qty: 20 0RF lisinopril-hydrochlorothiazide [Zestoretic] 20-12.5 mg tablet 1 tab PO DAILY Qty: 90 1RF
[2023-02-25 23:17] LABS: Basophils Percent Auto 0.4 % (0-2); Eosinophils Absolute Auto 0.2 X10*3/uL (0.0-0.4); Eosinophils Percent Auto 2.3 % (0-4); Hematocrit 40.3 % (42.0-52.0); Hemoglobin 13.3 g/dl (14.0-18.0); Imm Gran Abs Auto 0.02 X10*3/uL (0.00-0.03); Imm Gran Pct Auto 0.2 % (0.0-0.4); Lymphocytes Absolute Auto 1.7 X10*3/uL (1.2-4.9); Lymphocytes Percent Auto 19.7 % (20-40); MANUAL DIFF FLAG NO; Mean Corpuscular Hemoglobin 29.2 pg (27.0-33.0); Mean Corpuscular Volume 88.6 fL (80.0-98.0); Mean Platelet Volume 10.1 fL (9.4-12.4); Monocytes Percent Auto 11.3 % (2-11); Neutrophils Absolute Auto 5.6 x10*3/uL (2.0-8.3); Neutrophils Percent Auto 66.1 % (45-73); Platelet Count 267 X10*3/uL (160-400); Red Blood Count 4.55 X10*6/uL (4.60-5.80); Red Cell Distribution Width 12.2 % (11.0-16.0); White Blood Count 8.5 X10*3/uL (4.8-10.8)
[2023-02-25 23:22] LABS: Appearance Urine Clear; Color Urine Yellow; Glucose Urine UA Negative (Negative); Leukocyte Esterase Urine Negative (Negative); Nitrite Urine Negative (Negative); PH 5.5 (5.0-9.0); Specific Gravity - Urine 1.025 (1.005-1.025); Urine Blood Negative (Negative); Urine Ketones Trace mg/dL (Negative); Urine Protein Trace mg/dL (Neg-Trace)
[2023-02-25 23:27] LABS: Bacteria Urine None Seen (None Seen); Hyaline Casts Urine 0-2 /LPF (0-2); RBC Urine 0-2 /HPF (0-2); Squamous Epithelial Cell Urine 0-2 /HPF (0-2); WBC Urine 0-5 /HPF (0-5)
[2023-02-25 23:30] LABS: Anion Gap 14 (12-20); Blood Urea Nitrogen 14 mg/dL (9-16); Calcium 9.7 mg/dL (8.4-10.2); Carbon Dioxide 23 mmol/L (22-29); Chloride 108 mmol/L (96-108); Creatinine Clr Calc Pharmacy 83.6; Estimated Glomerular Filt Rate > 60; Glucose Random 85 mg/dL (60-115); Potassium 3.7 mmol/L (3.3-5.1); Sodium 141 mmol/L (135-145)
--- NOTE | 2023-02-25 23:37 | PC.NURSE ---
pt taken to x-ray, labs collected and sent, will medicate per Jul.
[2023-02-25] MEDS: HYDROcodone Bit/Acetam 5/325 TABLET 1 TAB PO (23:40)
[2023-02-25] MEDS: Cyclobenzaprine HCl 10 MG TABLET PO (23:40)
[2023-02-25 23:57] VITALS: BP 203/117; PULSE 58; RESP 18; TEMP 36.7; O2SAT 96
--- NOTE | 2023-02-26 00:08 | PC.NURSE ---
pt hypertensive, Dr. Up aware, new order to address blood pressure, Will medicate per Jul.
[2023-02-26] MEDS: lisinopriL 20 MG TABLET PO (00:12)
[2023-02-26 00:41] VITALS: BP 202/110; PULSE 60; RESP 20; O2SAT 98
--- NOTE | 2023-02-26 00:42 | PC.NURSE ---
pt a&o, no sob or chest pain, pt denies any pain or discomfort upon discharge, Reviewed discharge instructions with pt. pt verbalized understanding.
== END 2023-02-26 00:44 | disposition home or self-care (01) ==
PROVIDERS: Emergency Provider Emergency Medicine
DX: M54.6 Pain in thoracic spine (principal); I10 Essential (primary) hypertension; Z91.148 Patient's other noncompliance with medication regimen for other reason; Z79.899 Other long term (current) drug therapy
CPT/HCPCS: 36415; 71101; 80048; 81001; 85025; 99284

== ENCOUNTER 2023-08-08 14:10 | Emergency (ER) | payer SELFPAY ==
--- NOTE | ~2023-08-08 | XR_ITS ---
EXAMINATION: XR CHEST CLINICAL INFORMATION: Cough COMPARISON: Previous chest x-ray February 2023 TECHNIQUE: 2 views of the chest were obtained. FINDINGS: The cardiac and mediastinal contours are stable. The thoracic aorta is tortuous. The lungs are clear. No pleural effusion or pneumothorax. Degenerative changes of the spine. XR/XR chest 2V IMPRESSION: No evidence for acute disease in the chest.
[2023-08-08 15:28] VITALS: BP 220/113; PULSE 91; RESP 16; TEMP 39.1; O2SAT 98; BMI 21.4
--- NOTE | 2023-08-08 15:32 | ED_ITS ---
HPI - General Adult General Chief complaint: Headache Stated complaint: Headache Time Seen by Provider: 08/08/23 16:01 Source: patient, RN notes reviewed and old records reviewed Mode of arrival: ambulatory Limitations: no limitations History of Present Illness HPI narrative: 57-year-old male past medical history significant for hypertension presents for evaluation of headaches and lower back pain. Patient also endorses a cough since yesterday He endorses increased weakness, lower back pain. He was found have a temp of a 101.3? on arrival to the ED He has not taken any medications to help with symptoms. Denies any recent travel or sick contacts Denies any abdominal pain, nausea vomiting Denies any neck pain Related Data Previous Rx's Medication Instructions Recorded ibuprofen 800 mg tablet 800 mg PO Q8H PRN pain #30 tabs 12/04/20 hydrocortisone 2.5 % topical 1 appl topical QD-TID PRN skin 05/29/22 ointment irritation #454 grams lisinopril 10 1 tab PO DAILY blood pressure #30 05/29/22 mg-hydrochlorothiazide 12.5 mg tabs tablet prednisone 20 mg tablet 40 mg (2 x 20 mg) PO DAILY 5 days 05/29/22 #10 tabs dicyclomine 20 mg tablet 20 mg PO TID PRN abdominal pain 07/02/22 #20 tabs lisinopril 20 1 tab PO DAILY #90 tabs 07/02/22 mg-hydrochlorothiazide 12.5 mg tablet (Zestoretic) cyclobenzaprine 10 mg tablet 10 mg PO TID PRN muscle spasm #14 02/26/23 tabs lidocaine 5 % topical patch 1 patch topical DAILY #30 ea 02/26/23 lisinopril 20 mg tablet 20 mg PO DAILY #30 tabs 02/26/23 azithromycin 250 mg tablet See Rx Instructions PO .COMPLEX #6 08/08/23 tabs Allergies Allergy/AdvReac Type Severity Reaction Status Date / Time No Known Allergies Allergy Verified 12/04/20 19:07 Review of Systems 2 Constitutional: Constitutional: Reports body ache(s), Reports chills, Reports fever(s), Reports headache(s), Reports malaise and Reports weakness Eyes: Eyes: Denies blurry vision ENT: Reports headache(s) and Denies sore throat Cardiovascular: Cardiovascular: Denies chest pain and Denies dyspnea Respiratory: Respiratory: Reports cough and Denies dyspnea Gastrointestinal: Gastrointestinal: Denies abdominal pain, Denies nausea and Denies vomiting Musculoskeletal: Musculoskeletal: Reports back pain Integumentary/Breasts: Skin/Breast: Denies rash Neurologic: Reports headache(s) and Reports weakness PMFSH Past Medical History Medical History Broken foot HTN (hypertension) Social History Social History (Updated 02/25/23 @ 23:10 by Vy Up DO) Alcohol intake: current Alcohol intake frequency: does not drink Alcohol type: beer Patient Tobacco Use Status: Tobacco use Unknown Advance Directives: No Advance Directives Information Provided: Yes Physical Exam ED Vital Signs: Vital Signs - 24 hr 08/08/23 15:28 08/08/23 15:50 08/08/23 16:41 Temperature 102.3 F H 101.3 F H 100.1 F Pulse Rate 91 88 Respiratory Rate 16 18 Blood Pressure 220/113 H 196/108 H Pulse Oximetry 98 94 Oxygen Delivery Method Room Air Room Air BMI result Body Mass Index 21.4 Const General: healthy appearing, comfortable, no acute distress, alert and awake Nutritional Appearance: well nourished Orientation/consciousness: patient oriented x3 HENMT Head: Yes normocephalic and Yes atraumatic Throat: Yes posterior oropharynx normal Eyes Eyelids: Yes eyelids normal Conjunctivae: conjunctivae normal Sclerae: sclerae normal Corneas: corneas normal Pupils: Equal, round and reactive pupils present EOM: EOMs intact bilaterally Neck Neck: Yes full ROM and Yes no meningeal signs Resp Effort & Inspection: normal respiratory effort, able to speak in complete sentences, no audible wheezes and not labored Auscultation: clear to auscultation bilaterally Cardio Rate: regular rate Rhythm: regular rhythm GI Inspection: No distended Palpation (GI): Soft to palpation, not firm, nontender, no guarding and not rigid Skin General skin exam: elasticity normal Neuro General: patient oriented x3 and no meningeal signs Cranial nerves: Yes Equal, round and reactive pupils present and Yes Bilaterally intact EOM present Cognition (Neuro): normal cognition Extrem Other: Moving all extremities well without any obvious deformities Course Course Course Narrative: Patient complains today of headache which began at work last night He denies nausea and vomiting In triage she is noted to have a temp of 102.3, as well as a blood pressure of 220/113 He did not take his blood pressure medicine today Serology is sent, he is given Tylenol Reevaluation(s) Reevaluation #1: Patient's viral swabs negative. I therefore ordered a chest x-ray to evaluate for pneumonia this was also clear. The patient does not leukocytosis of 18.4. Have re-evaluation his fever has improved, he has no neck pain, he does complain of mild headache. He is able to touch his chin to his chest without any neck pain whatsoever. He has no meningeal signs to suggest meningitis. The patient is not confused or altered in any way, low suspicion for infectious encephalitis. He continues to deny any chest pain, abdominal pain nausea, vomiting. His symptoms are still most likely viral in origin. The patient would like to be discharged home. Given that his vital signs improved after treatment however, we will draw blood cultures prior to discharge. The patient was given strict return precautions Time: 18:40 Medications Administered Discontinued Medications Generic Name Dose Route Start Last Admin Trade Name Sheltonq PRN Reason Stop Dose Admin Acetaminophen 975 mg 08/08/23 15:34 08/08/23 15:54 Acetaminophen 325 Mg Tablet PO 08/08/23 15:35 975 mg ONCE ONE Administration Sodium Chloride 1,000 mls @ 999 mls/hr 08/08/23 16:15 08/08/23 16:39 Ns IV 08/08/23 17:15 999 mls/hr .Q1H1M YASMIN Administration Ketorolac Tromethamine 30 mg 08/08/23 16:09 08/08/23 16:39 Ketorolac Tromethamine 30 Mg/Ml Vial IVPUSH 08/08/23 16:10 30 mg ONCE ONE Administration Medical Decision Making Medical Decision Making [facility] Narrative: 57-year-old male with past medical history significant for hypertension presents for evaluation of fevers, headaches upper respiratory symptoms. Symptoms started yesterday, plan for viral swabs. He was treated with Tylenol, Toradol IV fluids. He was found to be hypertensive to 196/108 at time of my evaluation. He has no neck pain or nuchal rigidity to suggest meningeal cause of his symptoms. Most likely body aches and headache related to the fever. Labs pending. Further workup as indicated. Differential Diagnosis Differential Diagnoses: The differential diagnosis associated with the presentation includes Influenza Upper respiratory infection COVID-19 Viral syndrome Pharyngitis Acute headache Hypertension Lab Data 08/08/23 16:01 08/08/23 16:01 Labs: Lab Results 08/08/23 08/08/23 Range/Units 16:01 16:02 WBC 18.4 H (4.8-10.8) X10*3/uL RBC 4.82 (4.60-5.80) X10*6/uL Hgb 13.9 L (14.0-18.0) g/dl Hct 41.4 L (42.0-52.0) % MCV 85.9 (80.0-98.0) fL MCH 28.8 (27.0-33.0) pg MCHC 33.6 (31.0-36.0) g/dl RDW 12.7 (11.0-16.0) % Plt Count 246 (160-400) X10*3/uL MPV 10.2 (9.4-12.4) fL Immature Gran % (Auto) 0.4 (0.0-0.4) % Neut % (Auto) 89.5 H (45-73) % Lymph % (Auto) 2.7 L (20-40) % [place] % (Auto) 7.3 (2-11) % Eos % (Auto) 0.0 (0-4) % Baso % (Auto) 0.1 (0-2) % Lymph # (Auto) 0.5 L (1.2-4.9) X10*3/uL [place] # (Auto) 1.4 H (0.1-1.2) X10*3/uL Eos # (Auto) 0.0 (0.0-0.4) X10*3/uL Baso # (Auto) 0.0 (0.0-0.2) X10*3/uL Abs Immat Gran (auto) 0.08 H (0.00-0.03) X10*3/uL Absolute Neuts (auto) 16.5 H (2.0-8.3) x10*3/uL Absolute Nucleated RBC 0.000 (0.0-0.012) X10*3/uL Nucleated RBC % (auto) 0.0 (0.0-0.2) /100WBC Sodium 138 (135-145) mmol/L Potassium 3.6 (3.3-5.1) mmol/L Chloride 103 (96-108) mmol/L Carbon Dioxide 24 (22-29) mmol/L Anion Gap 15 (12-20) BUN 13 (9-16) mg/dL Creatinine 0.99 (0.5-1.4) mg/dL Estim Creat Clear Calc 72.6 Estimated GFR > 60 Random Glucose 113 (60-115) mg/dL Calcium 9.8 (8.4-10.2) mg/dL Influenza Type A (PCR) NEGATIVE (Negative) Influenza Type B (PCR) NEGATIVE (Negative) RSV RNA Qual (PCR) NEGATIVE (Negative) SARS-CoV-2 RNA (RT-PCR) NEGATIVE (Negative) Prescription Management I considered prescription management with: Pain Medication Chronic Conditions Patient?s care impacted by: Hypertension Discharge Plan Discharge Clinical Impression: Acute upper respiratory infection Patient Disposition: Home, Self-Care Instructions: Upper Respiratory Infection (ED) Additional Instructions: Take azithromycin as directed. Use Motrin/Tylenol for fevers, body aches Return to the ER for new or worsening symptoms Drink lots of fluids Follow-up your primary doctor Prescriptions: New azithromycin 250 mg tablet See Rx Instructions .ROUTE .COMPLEX Qty: 6 0RF Rx Instructions: For 250 mg dose pack: take 500 mg today (day 1), then 250 mg for 4 days (days 2-5) No Action ibuprofen 800 mg tablet 800 mg PO Q8H PRN (Reason: pain) Qty: 30 0RF prednisone 20 mg tablet 40 mg PO DAILY 5 Days Qty: 10 0RF hydrocortisone 2.5 % ointment 1 appl topical QD-TID PRN (Reason: skin irritation) Qty: 454 0RF lisinopril-hydrochlorothiazide 10-12.5 mg tablet 1 tab PO DAILY Qty: 30 0RF dicyclomine 20 mg tablet 20 mg PO TID PRN (Reason: abdominal pain) Qty: 20 0RF lisinopril-hydrochlorothiazide [Zestoretic] 20-12.5 mg tablet 1 tab PO DAILY Qty: 90 1RF cyclobenzaprine 10 mg tablet 10 mg PO TID PRN (Reason: muscle spasm) Qty: 14 0RF lidocaine 5 % adhesive patch,medicated 1 patch topical DAILY Qty: 30 0RF Rx Instructions: leave on most painful area for up to 12 hrs lisinopril 20 mg tablet 20 mg PO DAILY Qty: 30 0RF
[2023-08-08 15:50] VITALS: BP 196/108; PULSE 88; RESP 18; TEMP 38.5; O2SAT 94
[2023-08-08] MEDS: Acetaminophen 325 MG TABLET 975 MG PO (15:54)
[2023-08-08 16:07] LABS: MANUAL DIFF FLAG NO
[2023-08-08 16:10] LABS: Basophils Percent Auto 0.1 % (0-2); Hematocrit 41.4 % (42.0-52.0); Hemoglobin 13.9 g/dl (14.0-18.0); Imm Gran Abs Auto 0.08 X10*3/uL (0.00-0.03); Imm Gran Pct Auto 0.4 % (0.0-0.4); Lymphocytes Absolute Auto 0.5 X10*3/uL (1.2-4.9); Lymphocytes Percent Auto 2.7 % (20-40); Mean Corpuscular HGB Conc 33.6 g/dl (31.0-36.0); Mean Corpuscular Hemoglobin 28.8 pg (27.0-33.0); Mean Corpuscular Volume 85.9 fL (80.0-98.0); Mean Platelet Volume 10.2 fL (9.4-12.4); Monocytes Absolute Auto 1.4 X10*3/uL (0.1-1.2); Monocytes Percent Auto 7.3 % (2-11); Neutrophils Absolute Auto 16.5 x10*3/uL (2.0-8.3); Neutrophils Percent Auto 89.5 % (45-73); Platelet Count 246 X10*3/uL (160-400); Red Blood Count 4.82 X10*6/uL (4.60-5.80); Red Cell Distribution Width 12.7 % (11.0-16.0); White Blood Count 18.4 X10*3/uL (4.8-10.8)
[2023-08-08 16:21] LABS: Anion Gap 15 (12-20); Blood Urea Nitrogen 13 mg/dL (9-16); Calcium 9.8 mg/dL (8.4-10.2); Carbon Dioxide 24 mmol/L (22-29); Chloride 103 mmol/L (96-108); Creatinine Clr Calc Pharmacy 72.6; Estimated Glomerular Filt Rate > 60; Glucose Random 113 mg/dL (60-115); Potassium 3.6 mmol/L (3.3-5.1); Sodium 138 mmol/L (135-145)
[2023-08-08] MEDS: Ketorolac Tromethamine 30 MG/ML VIAL IVPUSH (16:39)
[2023-08-08] MEDS: 0.9 % Sodium Chloride 1,000 ML 999 ML IV (16:39)
[2023-08-08 16:41] VITALS: TEMP 37.8
[2023-08-08 16:58] LABS: Influenza A PCR NEGATIVE (Negative); Influenza B PCR NEGATIVE (Negative); Resp Syncy Virus RNA Qual PCR NEGATIVE (Negative); SARS COV2 PCR INHOUSE NEGATIVE (Negative)
== END 2023-08-08 19:16 | disposition home or self-care (01) ==
PROVIDERS: Physician Assistant Medical; Emergency Provider Emergency Medicine
DX: J06.9 Acute upper respiratory infection, unspecified (principal); R51.9 Headache, unspecified; M54.50 Low back pain, unspecified; R05.9 Cough, unspecified; Z11.52 Encounter for screening for COVID-19; Z20.822 Contact with and (suspected) exposure to COVID-19; Z79.899 Other long term (current) drug therapy
CPT/HCPCS: 0241U; 36415; 71046; 80048; 85025; 87040; 96374; 99284; J1885

== ENCOUNTER 2023-09-12 20:26 | Emergency (ER) | payer OTHER, SELFPAY ==
--- NOTE | ~2023-09-12 | CT_ITS ---
EXAMINATION: CT ANGIOGRAM HEAD CT ANGIOGRAM NECK CLINICAL INFORMATION: Reason for Exam dizziness COMPARISON: MRI brain 11/24/2017 TECHNIQUE: Test bolus sequences followed by intravenous administration 75 mL of Omnipaque 350. Helical imaging was performed in the axial plane from the aortic arch to the skull vertex. Delayed postcontrast imaging of the head was also performed. The data was processed at the medical laboratory technologist's workstation for generation of MIP sequences. Angled MIPs and volume rendered reformatted images were also generated at an offline 3D workstation. Stenoses are assessed in accordance with Rebollar et al. Quantification of Carotid Stenosis on CT Angiography. AJR 2006. 27(1):13-19. This CT examination was performed using dose optimization techniques as appropriate, variously including the following: *Automated exposure control *Adjustment of mA and/or kV according to patient size (this includes techniques or standardized protocols for targeted exams where dose is matched to indication/reason for exam; i.e. extremities or head) *Use of iterative reconstruction technique DLP: 2342.1 mGy-cm FINDINGS: CT HEAD: Mild generalized parenchymal volume loss. Apparent new age-indeterminate possibly chronic lacunar infarct in the anterior limb of the left internal capsule. Apparent asymmetric hypodensity within the left occipital lobe is favored to be technical in etiology however would be better diagnostically assessed on MRI. No acute intracranial hemorrhage or extra-axial fluid collection. No mass lesion, significant mass effect, or herniation pattern. Right frontal lobe developmental venous anomaly. The orbits are grossly normal. Retention cyst in the left frontal sinus and anterior left ethmoid air cells and mild to moderate mucosal disease in the maxillary sinuses. No mastoid effusion. Cerumen in the right EAC. Osseous structures are intact. CTA HEAD: No hemodynamically significant stenosis or occlusion in the anterior or posterior circulation. There is a dominant right PICA. No aneurysms and no high flow vascular malformations. Timing of the contrast bolus allows assessment of the major dural venous sinuses, which all opacify normally CTA NECK: Suboptimal timing of contrast bolus. Query dilated ascending aorta up to approximately 4 cm, noting motion artifact limits assessment. Limited diagnostic assessment of the great vessels related to contrast bolus timing and beam hardening artifact from adjacent venous contrast. Mild fibrofatty plaque along the left common carotid artery without stenosis. The right common carotid artery is normal. Mild atherosclerosis of the bilateral carotid bifurcations without ICA origin stenosis. Retropharyngeal course of the right proximal cervical ICA. The right vertebral artery is dominant. Nondiagnostic assessment of the bilateral vertebral artery origins through proximal V2 segments. Both vertebral arteries are otherwise widely patent throughout their extracranial cervical course. CT NECK: Scattered periapical and periodontal disease. Sclerosis within the posterior left maxillary alveolus in the region of prominent periodontal disease, presumably reactive osteitis. Symmetric prominence of palatine tonsils for age, presumably reactive. Punctate right palatine tonsilloliths. Mild cervical spondylosis. Nuchal ligamentous ossification. CT/CT angio head neck IMPRESSION: 1. Apparent new age-indeterminate possibly chronic lacunar infarct in the anterior limb of the left internal capsule. Apparent asymmetric hypodensity within the left occipital lobe is favored to be technical in etiology however would be better diagnostically assessed on MRI. No acute intracranial hemorrhage. 2. Query dilated ascending aorta up to approximately 4 cm, noting motion artifact limits assessment. 3. No acute arterial occlusion or hemodynamically significant stenosis within the head or neck. Nondiagnostic assessment of the bilateral vertebral artery origins through proximal V2 segments.
[2023-09-12 20:38] VITALS: BP 160/80; BP 204/120; PULSE 70; PULSE 76; RESP 20; TEMP 36.9; O2SAT 90; O2SAT 96; BMI 29.9
[2023-09-12] MEDS: ondansetron HCL 4 MG/2 ML VIAL IVPUSH (20:57)
[2023-09-12 21:00] LABS: Basophils Percent Auto 0.2 % (0-2); Hematocrit 40.6 % (42.0-52.0); Hemoglobin 13.4 g/dl (14.0-18.0); Imm Gran Abs Auto 0.08 X10*3/uL (0.00-0.03); Imm Gran Pct Auto 0.5 % (0.0-0.4); Lymphocytes Absolute Auto 0.4 X10*3/uL (1.2-4.9); Lymphocytes Percent Auto 2.5 % (20-40); MANUAL DIFF FLAG SCAN; Mean Corpuscular Hemoglobin 28.6 pg (27.0-33.0); Mean Corpuscular Volume 86.8 fL (80.0-98.0); Mean Platelet Volume 10.1 fL (9.4-12.4); Monocytes Absolute Auto 0.5 X10*3/uL (0.1-1.2); Monocytes Percent Auto 3.2 % (2-11); Neutrophils Absolute Auto 16.1 x10*3/uL (2.0-8.3); Neutrophils Percent Auto 93.6 % (45-73); Platelet Count 268 X10*3/uL (160-400); Red Blood Count 4.68 X10*6/uL (4.60-5.80); Red Cell Distribution Width 12.9 % (11.0-16.0); SCAN SMEAR FLAG 1; White Blood Count 17.1 X10*3/uL (4.8-10.8)
[2023-09-12] MEDS: 0.9 % Sodium Chloride 1,000 ML 999 ML IVCONT (21:01)
[2023-09-12 21:14] LABS: Alanine Aminotransferase 15 U/L (0-40); Albumin Level 4.4 g/dL (3.5-5.0); Alkaline Phosphatase 98 U/L (39-117); Anion Gap 14 (12-20); Aspartate Amino Transferase 20 U/L (5-37); Bilirubin Direct 0.2 mg/dL (0.0-0.5); Bilirubin Total 0.5 mg/dL (0.0-1.0); Blood Urea Nitrogen 10 mg/dL (9-16); Calcium 9.7 mg/dL (8.4-10.2); Carbon Dioxide 27 mmol/L (22-29); Chloride 103 mmol/L (96-108); Creatinine Clr Calc Pharmacy 103.9; Estimated Glomerular Filt Rate > 60; Glucose Random 114 mg/dL (60-115); Lipase 12 U/L (8-78); Potassium 3.6 mmol/L (3.3-5.1); Sodium 140 mmol/L (135-145); Total Protein 8.7 g/dL (6.5-8.0)
[2023-09-12 21:27] LABS: SLIDE REVIEW VERIFIED
--- NOTE | 2023-09-12 21:30 | ED.GENADULT ---
HPI - General Adult General Chief complaint: General Medical Stated complaint: active vomiting, chills, weakness Time Seen by Provider: 09/12/23 20:46 Source: patient, RN notes reviewed and old records reviewed Mode of arrival: ambulatory Limitations: no limitations History of Present Illness HPI narrative: 57-year-old male with past medical history significant for hypertension presents for evaluation of vomiting. Patient reports he had a sudden onset of vomiting around 3:00 p.m. today, about 5 hours prior to arrival. He denies any abdominal pain, fevers, chills, headaches. He does complain of some dizziness Hypertensive to 204/120 on arrival to the ED. otherwise his vital signs are within normal limits. 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 ? Denies any sick contacts Related Data Previous Rx's ?Medication ?Instructions ?Recorded ibuprofen 800 mg tablet 800 mg PO Q8H PRN pain #30 tabs 12/04/20 hydrocortisone 2.5 % topical 1 appl topical QD-TID PRN skin 05/29/22 ointment irritation #454 grams lisinopril 10 1 tab PO DAILY blood pressure #30 05/29/22 mg-hydrochlorothiazide 12.5 mg tabs tablet prednisone 20 mg tablet 40 mg (2 x 20 mg) PO DAILY 5 days 05/29/22 #10 tabs dicyclomine 20 mg tablet 20 mg PO TID PRN abdominal pain 07/02/22 #20 tabs lisinopril 20 1 tab PO DAILY #90 tabs 07/02/22 mg-hydrochlorothiazide 12.5 mg tablet (Zestoretic) cyclobenzaprine 10 mg tablet 10 mg PO TID PRN muscle spasm #14 02/26/23 tabs lidocaine 5 % topical patch 1 patch topical DAILY #30 ea 02/26/23 lisinopril 20 mg tablet 20 mg PO DAILY #30 tabs 02/26/23 azithromycin 250 mg tablet See Rx Instructions PO .COMPLEX #6 08/08/23 tabs tramadol 50 mg tablet 50 mg PO Q6H PRN pain (scale score 08/08/23 7-10) #12 tabs ondansetron 4 mg disintegrating 4 mg PO Q8H PRN nausea and 09/13/23 tablet vomiting #20 tabs Allergies Allergy/AdvReac Type Severity Reaction Status Date / Time No Known Allergies Allergy Verified 09/12/23 20:40 Review of Systems Constitutional: Constitutional: Denies body ache(s), Denies chills and Denies fever(s) ENT: Reports dizziness Cardiovascular: Cardiovascular: Denies chest pain and Denies dyspnea Respiratory: Respiratory: Denies cough and Denies dyspnea Gastrointestinal: Gastrointestinal: Denies abdominal pain, Reports nausea and Reports vomiting Musculoskeletal: Musculoskeletal: Denies back pain Integumentary/Breasts: Skin/Breast: Denies rash Neurologic: Reports dizziness Psychiatric: Psychiatric: Denies anxiety PMFSH Past Medical History Medical History Broken foot HTN (hypertension) Social History Social History (Updated 02/25/23 @ 23:10 by Vy Up DO) Alcohol intake: never Patient Tobacco Use Status: Tobacco use Unknown Smoked in Last 30 Days: No Use of substances other than those prescribed or required for medical reasons: No Advance Directives: No Advance Directives Information Provided: No Physical Exam ED Vital Signs: Vital Signs - 24 hr 09/12/23 20:38 09/12/23 21:45 09/12/23 21:46 Temperature 98.4 F Pulse Rate 70 64 Respiratory Rate 20 14 Blood Pressure 204/120 H 210/113 H Pulse Oximetry 96 97 Oxygen Delivery Method Room Air Room Air 09/12/23 23:38 Temperature Pulse Rate 74 Respiratory Rate Blood Pressure 213/120 H Pulse Oximetry Oxygen Delivery Method BMI result Body Mass Index 29.9 Const General: healthy appearing, comfortable, no acute distress, alert and awake Nutritional Appearance: well nourished Orientation/consciousness: patient oriented x3 HENMT Head: Yes normocephalic and Yes atraumatic Eyes Eyelids: Yes eyelids normal Conjunctivae: conjunctivae normal Sclerae: sclerae normal Corneas: corneas normal Pupils: Equal, round and reactive pupils present EOM: EOMs intact bilaterally Neck Neck: Yes full ROM Resp Effort & Inspection: normal respiratory effort, able to speak in complete sentences and not labored GI Inspection: No distended Palpation (GI): Soft to palpation, not firm, nontender, no guarding and not rigid Skin General skin exam: elasticity normal Neuro General: patient oriented x3 Cranial nerves: Yes Equal, round and reactive pupils present and Yes Bilaterally intact EOM present Cognition (Neuro): normal cognition Coordination: [id number] test normal and Normal rapid alternating movements of the distal upper extremity present (Neuro) Extrem Other: Moving all extremities well without any obvious deformities Course Reevaluation(s) Reevaluation #1: Patient reports no improvement with fluids, meclizine, Zofran. He is complaining mostly nausea. The patient denies any further dizziness to me. His family was bedside states that the patient is not being truthful and he was complaining of dizziness just prior to me re-entering the room. Patient's neuro exam/cerebellar exam is benign. However given his significant hypertension will get a CTA head and neck to rule out central vertigo. Will treat his high blood pressure with labetalol and will give Compazine for his nausea Time: 22:59 Reevaluation #2: CT scan shows no acute intracranial hemorrhage, critical stenosis. He does have interval change of a chronic lacunar infarct when compared to an MRI of 2018. Symptoms are resolved and exam, his blood pressure is improved to 169/81. Patient reports that he has his lisinopril medication at home she can continue taking, unsure him to do so. Will discharge the patient with Zofran. Time: 00:32 Medications Administered Discontinued Medications Generic Name Dose Route Start Last Admin Trade Name Freq PRN Reason Stop Dose Admin Sodium Chloride 1,000 mls @ 999 mls/hr 09/12/23 20:40 09/12/23 22:30 Ns IVCONT 09/12/23 21:40 Infused .Q1H1M ONE Infusion Iohexol 75 ml 09/12/23 23:59 09/13/23 00:00 Iohexol 350 Mg/Ml 100 Ml Infus..Btl IV 09/13/23 00:00 75 ml ONCE ONE Administration Labetalol HCl 10 mg 09/12/23 22:56 09/12/23 23:38 Labetalol Hcl 100 Mg/20 Ml Vial IVPUSH 09/12/23 22:57 10 mg ONCE ONE Administration Lisinopril 20 mg 09/12/23 21:31 09/12/23 21:45 Lisinopril 20 Mg Tablet PO 09/12/23 21:32 20 mg ONCE ONE Administration Protocol Meclizine HCl 25 mg 09/12/23 21:33 09/12/23 21:45 Meclizine Hcl 25 Mg Tablet PO 09/12/23 21:34 25 mg ONCE ONE Administration Ondansetron HCl 4 mg 09/12/23 20:40 09/12/23 20:57 Ondansetron Hcl 4 Mg/2 Ml Vial IVPUSH 09/12/23 20:41 4 mg ONCE ONE Administration Prochlorperazine Edisylate 10 mg 09/12/23 22:57 09/12/23 23:35 Prochlorperazine Edisylate 10 Mg/2 Ml Vial IVPUSH 09/12/23 22:58 10 mg ONCE ONE Administration Medical Decision Making Medical Decision Making [facility] Narrative: 57-year-old male presents for evaluation of vomiting that started abruptly at 3:00 p.m.. The patient denies any sick contacts, going out to eat at all. Denies any headaches fevers, chills, cough, shortness of breath, abdominal pain. Symptoms possibly related to a viral illness. His neuro exam is reassuring. Plan to treat with IV fluids and Zofran. Labs pending. Will treat the patient's hypertension with lisinopril 20 mg which is excellent med neck shows he has been prescribed Differential Diagnosis Differential Diagnoses: The differential diagnosis associated with the presentation includes Gastroenteritis Vomiting Pancreatitis Dehydration Orthostasis Hypertension Lab Data [facility] Lab Attestation statement: I reviewed the patient's lab results. Leukocytosis to 17.1 K. they left shift. the patient does have a mild anemia with a hemoglobin 13.4 and hematocrit 40.6. This is consistent with his recent labs and baseline. Chemistries and renal function within normal limits. LFTs within normal limits. 09/12/23 20:50 09/12/23 20:50 Labs: Lab Results 09/12/23 Range/Units 20:50 WBC 17.1 H (4.8-10.8) X10*3/uL RBC 4.68 (4.60-5.80) X10*6/uL Hgb 13.4 L (14.0-18.0) g/dl Hct 40.6 L (42.0-52.0) % MCV 86.8 (80.0-98.0) fL MCH 28.6 (27.0-33.0) pg MCHC 33.0 (31.0-36.0) g/dl RDW 12.9 (11.0-16.0) % Plt Count 268 (160-400) X10*3/uL MPV 10.1 (9.4-12.4) fL Immature Gran % (Auto) 0.5 H (0.0-0.4) % Neut % (Auto) 93.6 H (45-73) % Lymph % (Auto) 2.5 L (20-40) % [place] % (Auto) 3.2 (2-11) % Eos % (Auto) 0.0 (0-4) % Baso % (Auto) 0.2 (0-2) % Lymph # (Auto) 0.4 L (1.2-4.9) X10*3/uL [place] # (Auto) 0.5 (0.1-1.2) X10*3/uL Eos # (Auto) 0.0 (0.0-0.4) X10*3/uL Baso # (Auto) 0.0 (0.0-0.2) X10*3/uL Abs Immat Gran (auto) 0.08 H (0.00-0.03) X10*3/uL Absolute Neuts (auto) 16.1 H (2.0-8.3) x10*3/uL Absolute Nucleated RBC 0.000 (0.0-0.012) X10*3/uL Nucleated RBC % (auto) 0.0 (0.0-0.2) /100WBC Smear Tech's Comments VERIFIED Sodium 140 (135-145) mmol/L Potassium 3.6 (3.3-5.1) mmol/L Chloride 103 (96-108) mmol/L Carbon Dioxide 27 (22-29) mmol/L Anion Gap 14 (12-20) BUN 10 (9-16) mg/dL Creatinine 0.83 (0.5-1.4) mg/dL Estim Creat Clear Calc 103.9 Estimated GFR > 60 Random Glucose 114 (60-115) mg/dL Calcium 9.7 (8.4-10.2) mg/dL Magnesium 2.0 (1.6-2.6) mg/dL Total Bilirubin 0.5 (0.0-1.0) mg/dL Direct Bilirubin 0.2 (0.0-0.5) mg/dL AST 20 (5-37) U/L ALT 15 (0-40) U/L Alkaline Phosphatase 98 (39-117) U/L Total Protein 8.7 H (6.5-8.0) g/dL Albumin 4.4 (3.5-5.0) g/dL Lipase 12 (8-78) U/L Influenza Type A (PCR) NEGATIVE (Negative) Influenza Type B (PCR) NEGATIVE (Negative) RSV RNA Qual (PCR) NEGATIVE (Negative) SARS-CoV-2 RNA (RT-PCR) NEGATIVE (Negative) Independent Interpretation I performed an independent interpretation of an: CT Scan (No acute intracranial hemorrhage, mass effect or midline shift) Radiology Impression Discussion of test interpretation with radiology: I have reviewed the radiologist's reading. Radiologist Impression: IMPRESSION: 1. Apparent new age-indeterminate possibly chronic lacunar infarct in the anterior limb of the left internal capsule. Apparent asymmetric hypodensity within the left occipital lobe is favored to be technical in etiology however would be better diagnostically assessed on MRI. No acute intracranial hemorrhage. 2. Query dilated ascending aorta up to approximately 4 cm, noting motion artifact limits assessment. 3. No acute arterial occlusion or hemodynamically significant stenosis within the head or neck. Nondiagnostic assessment of the bilateral vertebral artery origins through proximal V2 segments. Discharge Plan Discharge Clinical Impression: Vomiting, Hypertensive urgency Patient Disposition: Home, Self-Care Instructions: Acute Nausea and Vomiting (ED), Hypertensive Crisis (ED) Additional Instructions: Your workup in the ER today was reassuring. Use Zofran as needed for nausea/vomiting It is important that you take your blood pressure medication as prescribed Follow-up with your primary doctor Return for new or worsening symptoms Prescriptions: New ondansetron 4 mg tablet,disintegrating 4 mg PO Q8H PRN (Reason: nausea and vomiting) Qty: 20 0RF No Action ibuprofen 800 mg tablet 800 mg PO Q8H PRN (Reason: pain) Qty: 30 0RF prednisone 20 mg tablet 40 mg PO DAILY 5 Days Qty: 10 0RF hydrocortisone 2.5 % ointment 1 appl topical QD-TID PRN (Reason: skin irritation) Qty: 454 0RF lisinopril-hydrochlorothiazide 10-12.5 mg tablet 1 tab PO DAILY Qty: 30 0RF dicyclomine 20 mg tablet 20 mg PO TID PRN (Reason: abdominal pain) Qty: 20 0RF lisinopril-hydrochlorothiazide [Zestoretic] 20-12.5 mg tablet 1 tab PO DAILY Qty: 90 1RF cyclobenzaprine 10 mg tablet 10 mg PO TID PRN (Reason: muscle spasm) Qty: 14 0RF lidocaine 5 % adhesive patch,medicated 1 patch topical DAILY Qty: 30 0RF Rx Instructions: leave on most painful area for up to 12 hrs lisinopril 20 mg tablet 20 mg PO DAILY Qty: 30 0RF azithromycin 250 mg tablet See Rx Instructions .ROUTE .COMPLEX Qty: 6 0RF Rx Instructions: For 250 mg dose pack: take 500 mg today (day 1), then 250 mg for 4 days (days 2-5) tramadol 50 mg tablet 50 mg PO Q6H PRN (Reason: pain (scale score 7-10)) Qty: 12 0RF Print Language: Azeri
[2023-09-12 21:36] LABS: Influenza A PCR NEGATIVE (Negative); Influenza B PCR NEGATIVE (Negative); Resp Syncy Virus RNA Qual PCR NEGATIVE (Negative); SARS COV2 PCR INHOUSE NEGATIVE (Negative)
[2023-09-12 21:45] VITALS: BP 210/113
[2023-09-12] MEDS: Meclizine HCl 25 MG TABLET PO (21:45)
[2023-09-12] MEDS: lisinopriL 20 MG TABLET PO (21:45)
[2023-09-12 21:46] VITALS: PULSE 64; RESP 14; O2SAT 97
[2023-09-12] MEDS: Prochlorperazine Edisylate 10 MG/2 ML VIAL IVPUSH (23:35)
[2023-09-12 23:38] VITALS: BP 213/120; PULSE 74
[2023-09-12] MEDS: Labetalol HCL 100 MG/20 ML VIAL 10 MG IVPUSH (23:38)
[2023-09-13] MEDS: iohexoL 350 MG/ML 100 ML INFUS..BTL 75 ML IV
[2023-09-13 00:01] VITALS: BP 186/112; PULSE 72; RESP 18; O2SAT 96
[2023-09-13 00:21] VITALS: BP 161/89; PULSE 66; RESP 16; O2SAT 97
[2023-09-13 00:51] VITALS: BP 175/99; PULSE 65; RESP 16; TEMP 36.7; O2SAT 98
== END 2023-09-13 01:02 | disposition home or self-care (01) ==
PROVIDERS: Emergency Medicine; Emergency Provider Emergency Medicine Emergency Medical Services
DX: I16.0 Hypertensive urgency (principal); R11.2 Nausea with vomiting, unspecified; R51.9 Headache, unspecified; M54.2 Cervicalgia; I10 Essential (primary) hypertension; Z03.818 Encounter for observation for suspected exposure to other biological agents ruled out; Z79.899 Other long term (current) drug therapy
CPT/HCPCS: 0241U; 70496; 70498; 80048; 80076; 83690; 83735; 85025; 96361; 96374; 96375; 99284; 99285; J0737; J1920; J2405; Q9967

== ENCOUNTER 2024-07-25 08:28 | Emergency (ER) | payer MEDICAID, SELFPAY ==
--- NOTE | ~2024-07-25 | XR_ITS ---
EXAMINATION: XR CHEST 1 VIEW HISTORY: chest pain COMPARISON: Comparison is made with the prior examination dated 08/08/2023. FINDINGS: A single AP portable view of the chest performed at 9:46 AM is submitted. The lungs are expanded and clear. There is no pleural effusion, pneumothorax, or pulmonary vascular congestion. The heart is normal in size. The aorta is tortuous. There is degenerative disc disease of the spine. XR/XR chest 1V IMPRESSION: No acute cardiopulmonary abnormality. Electronically signed by: Marvin Joe MD 07/25/2024 09:47 AM [facility]
--- NOTE | 2024-07-25 08:30 | ECG_ITS ---
Test Reason : PALPITATION Blood Pressure : */* mmHG Vent. Rate : 77 BPM Atrial Rate : 77 BPM P-R Int : 148 ms QRS Dur : 86 ms QT Int : 402 ms P-R-T Axes : 36 -15 32 degrees QTcB Int : 454 ms Normal sinus rhythm Possible Left atrial enlargement Left ventricular hypertrophy ( R in aVL , Aaron product ) Abnormal ECG When compared with ECG of 02-Jul-2022 17:35, Nonspecific T wave abnormality, improved in Inferior leads T wave inversion no longer evident in Lateral leads Referred By: Generic ED Physician Electronically Signed By: Luis Diaz
[2024-07-25 08:49] VITALS: BP 173/102; PULSE 76; RESP 20; TEMP 37.1; O2SAT 95; BMI 28.6
[2024-07-25 09:58] LABS: MANUAL DIFF FLAG NO
[2024-07-25 09:59] LABS: Basophils Percent Auto 0.2 % (0-2); Hematocrit 43.8 % (42.0-52.0); Hemoglobin 14.3 g/dl (14.0-18.0); Imm Gran Abs Auto 0.02 X10*3/uL (0.00-0.03); Imm Gran Pct Auto 0.4 % (0.0-0.4); Lymphocytes Percent Auto 19.9 % (20-40); Mean Corpuscular HGB Conc 32.6 g/dl (31.0-36.0); Mean Corpuscular Hemoglobin 28.6 pg (27.0-33.0); Mean Corpuscular Volume 87.6 fL (80.0-98.0); Mean Platelet Volume 10.3 fL (9.4-12.4); Monocytes Percent Auto 19.7 % (2-11); Neutrophils Absolute Auto 2.9 x10*3/uL (2.0-8.3); Neutrophils Percent Auto 59.8 % (45-73); Platelet Count 220 X10*3/uL (160-400); Red Cell Distribution Width 12.7 % (11.0-16.0); White Blood Count 4.8 X10*3/uL (4.8-10.8)
[2024-07-25 10:13] LABS: Alanine Aminotransferase 16 U/L (0-40); Albumin Level 4.1 g/dL (3.5-5.0); Alkaline Phosphatase 81 U/L (39-117); Anion Gap 14 (12-20); Aspartate Amino Transferase 34 U/L (5-37); Bilirubin Direct 0.3 mg/dL (0.0-0.5); Bilirubin Total 0.8 mg/dL (0.0-1.0); Blood Urea Nitrogen 16 mg/dL (9-16); Calcium 9.3 mg/dL (8.4-10.2); Carbon Dioxide 25 mmol/L (22-29); Chloride 103 mmol/L (96-108); Creatinine Clr Calc Pharmacy 68.4; Estimated Glomerular Filt Rate > 60; Glucose Random 92 mg/dL (60-115); Lipase 23 U/L (8-78); Potassium 3.5 mmol/L (3.3-5.1); Sodium 138 mmol/L (135-145); Total Protein 8.3 g/dL (6.5-8.0)
[2024-07-25 10:20] LABS: Troponin-I High Sensitivity 20.4 ng/L (<3.5-35.0)
--- OUTSIDE RECORDS SUMMARY | 2024-07-25 10:43 | XMS_ITS | Clinical Summary ---
Author Organization [employer] Address [address] [place] [address] [address] [place] [address] Care Team Providers Care Software Deployment Engineer Name Role Phone Radha Marrero MD Primary Care Pro vider Active Problems Problem Noted Date Diagnosed Date Exostosis of left calcaneus 2022 Dyslipidemia 02/01/2018 Essential hypertension 02/01/2018 Overweight 02/01/2018 Impaired cognition 2013 Hyperlipidemia 06/05/2012 Amnesia 04/03/2012 Cobalamin deficiency 04/03/2012 Social History Tobacco Use Types Packs/Day Years Used Date Smoking Tobacco: Never Assessed Sex and Gender Information Value Date Recorded Sex Assigned at Male 03/27/2022 10:15 AM EDT Legal Sex Male 10:15 AM EDT Gender Identity Male 03/27/2022 10:15 AM EDT Sexual Orientation Choose not to disclose 2021 10:15 AM EDT Last Filed Vital Signs Vital Sign Reading Time Taken Comments Blood Pressure 209/114 12/28/2020 12:08 AM EDT Pulse 71 12/28/2020 12:08 AM EDT Temperature - - Respiratory Rate - - Oxygen Saturation - - Inhaled Oxygen Concentration - - Weight 90.9 kg (200 lb 6.4 oz) 12/28/2020 12:08 AM EDT Height 172.7 cm (5' 8 ) 12/28/2020 12:08 AM EDT Body Mass Index 30.47 12/28/2020 12:08 AM EDT Plan of Treatment Health Maintenance Due Date Last Done Comments CT Colonography 1963 Colonoscopy 1963 Colorectal Cancer Screening 1963 Depression Screening 1963 FIT DNA/Cologuard 1963 FIT 1963 FOBT 1963 Lipid Panel 1963 Sigmoidoscopy 1963 Alcohol/Substance Use Screening 1975 Tobacco Screening 1975 Pneumococcal Vaccine: 50+ Years (1 of 1 - PCV) 11/24/2013 Zoster Vaccines (1 of 2) 11/24/2013 DTaP/Tdap/Td Vaccines (2 - T d or Tdap) 02/21/2021 02/21/2011 COVID-19 Vaccine (2 - 2023-2 5 season) 2024 10/18/2020 Influenza Vaccine (#1) 2024 8, 03/05/2013, 02/21/2011 RSV Patients and Patients Aged 60 years or older (1 - 1-dose 75+ series) 11/24/2038 HIB Vaccines Aged Out No longer eligi ble based on patient's age to complete this topic HPV Vaccines Aged Out No longer eligi ble based on patient's age to complete this topic Hepatitis A Vaccines Aged Out No long er eligible based on patient's age to complete this topic Hepatitis B Vaccines Aged Out No long er eligible based on patient's age to complete this topic IPV Vaccines Aged Out No longer eligi ble based on patient's age to complete this topic Meningococcal Vaccine Aged Out No jinny césar eligible based on patient's age to complete this topic Pneumococcal Vaccine: Pediatrics (0 to 5 Years) and At-Risk Patients (6 to 49) Years) Aged Out No longer eligible b ased on patient's age to complete this topic RSV under 20 months Aged Out No longe r eligible based on patient's age to complete this topic Rotavirus Vaccines Aged Out No longer eligible based on patient's age to complete this topic Care Teams Software Deployment Engineer Relationship Specialty Start Date End Date Radha Marrero MD [address] [place] [id number] PCP - General Internal Medicine 12/05/22
[2024-07-25 13:59] LABS: Troponin-I High Sensitivity 20.4 ng/L (<3.5-35.0)
[2024-07-25 18:13] VITALS: BP 164/85; PULSE 72; RESP 16; O2SAT 95
[2024-07-25] MEDS: Magnesium Hydrox/Alum Hydrox 30 ML ORAL.SUSP 15 ML PO (18:13)
[2024-07-25] MEDS: Famotidine 20 MG TABLET PO (18:13)
--- NOTE | 2024-07-25 18:16 | ED.CHESTPAIN ---
HPI - Chest Pain General Chief Complaint: Chest Pain Stated Complaint: Chest pain Time Seen by Provider: 07/25/24 17:37 Source: patient Mode of arrival: ambulatory Limitations: no limitations History of Present Illness ED Provider: Andres MIX narrative: 58-year-old male presenting for substernal chest and epigastric pain. 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 He also endorses experiencing breif episode of lightheadeness yesterday. He denies shortness of breath, recent illness, fevers, chills, nausea, vomiting. Related Data Previous Rx's ?Medication ?Instructions ?Recorded ibuprofen 800 mg tablet 800 mg PO Q8H PRN pain #30 tabs 12/04/20 hydrocortisone 2.5 % topical 1 appl topical QD-TID PRN skin 05/29/22 ointment irritation #454 grams lisinopril 10 1 tab PO DAILY blood pressure #30 05/29/22 mg-hydrochlorothiazide 12.5 mg tabs tablet prednisone 20 mg tablet 40 mg (2 x 20 mg) PO DAILY 5 days 05/29/22 #10 tabs dicyclomine 20 mg tablet 20 mg PO TID PRN abdominal pain 07/02/22 #20 tabs lisinopril 20 1 tab PO DAILY #90 tabs 07/02/22 mg-hydrochlorothiazide 12.5 mg tablet (Zestoretic) cyclobenzaprine 10 mg tablet 10 mg PO TID PRN muscle spasm #14 02/26/23 tabs lidocaine 5 % topical patch 1 patch topical DAILY #30 ea 02/26/23 lisinopril 20 mg tablet 20 mg PO DAILY #30 tabs 02/26/23 azithromycin 250 mg tablet See Rx Instructions PO .COMPLEX #6 08/08/23 tabs tramadol 50 mg tablet 50 mg PO Q6H PRN pain (scale score 08/08/23 7-10) #12 tabs ondansetron 4 mg disintegrating 4 mg PO Q8H PRN nausea and 09/13/23 tablet vomiting #20 tabs famotidine 20 mg tablet (Pepcid) 20 mg PO DAILY 30 days #30 tabs 07/25/24 Allergies Allergy/AdvReac Type Severity Reaction Status Date / Time No Known Allergies Allergy Verified 07/25/24 08:51 Review of Systems Review of Systems: Yes all other systems are reviewed and are negative [facility] Past Medical History Medical History Broken foot HTN (hypertension) Social History Social History Alcohol intake: never Patient Tobacco Use Status: Tobacco use Unknown Smoked in Last 30 Days: No Use of substances other than those prescribed or required for medical reasons: No Advance Directives: No Advance Directives Information Provided: No Do you have a plan to hurt others: No Plan Physical Exam Vital Signs: Vital Signs: Last Vital Signs Temp 98.8 F 07/25/24 08:49 Pulse 72 07/25/24 18:13 Resp 16 07/25/24 18:13 BP 164/85 H 07/25/24 18:13 Pulse Ox 95 07/25/24 18:13 O2 Del Method Room Air 07/25/24 18:13 BMI result Body Mass Index 28.6 Well-appearing male in no acute distress A&O x4; normal speech and cognition Lungs clear to auscultation bilaterally Normal S1-S2 regular rate and rhythm Abdomen is soft, nondistended with mild epigastric tenderness to palpation Equal 2+ pulses in bilateral upper and lower extremities Bedside echo performed; aortic root of 3.7, no pericardial effusion with good EF, nonplethoric IVC Medications Administered Discontinued Medications Generic Name Dose Route Start Last Admin Trade Name Freq PRN Reason Stop Dose Admin Al Hydroxide/Mg Hydroxide 15 ml 07/25/24 17:50 07/25/24 18:13 Magnesium Hydrox/Alum Hydrox 30 Ml Oral.Susp PO 07/25/24 17:51 15 ml ONCE ONE Administration Famotidine 20 mg 07/25/24 17:50 07/25/24 18:13 Famotidine 20 Mg Tablet PO 07/25/24 17:51 20 mg ONCE ONE Administration Medical Decision Making Medical Decision Making [facility] Narrative: 58-year-old male presenting for chest pain -I am concerned for the following; acid reflux, gastritis, pancreatitis, muscular strain/sprain -I considered aortic dissection however this is likely given aortic root of 3.7 and reassuring physical exam -I considered ACS however patient has low heart score and pain is reproducible Lab and imaging interpretation: -normal cbc and H&H, normal lipase and LFTs, electrolytes within normal limits -flat troponins -no pneumo on cxr; radiolgy impression negative On reassessment pt is still well appearing however still in mild pain. I explained that I do not think this is his heart and could possible be gastritis or msk pain. Darrickcid sent to his pharmacy and I gave him followup instructions and return precautions. Discharged Lab Data 07/25/24 09:54 07/25/24 09:54 Labs: Lab Results 07/25/24 07/25/24 07/25/24 Range/Units 09:54 13:30 17:41 WBC 4.8 (4.8-10.8) X10*3/uL RBC 5.00 (4.60-5.80) X10*6/uL Hgb 14.3 (14.0-18.0) g/dl Hct 43.8 (42.0-52.0) % MCV 87.6 (80.0-98.0) fL MCH 28.6 (27.0-33.0) pg MCHC 32.6 (31.0-36.0) g/dl RDW 12.7 (11.0-16.0) % Plt Count 220 (160-400) X10*3/uL MPV 10.3 (9.4-12.4) fL Immature Gran % (Auto) 0.4 (0.0-0.4) % Neut % (Auto) 59.8 (45-73) % Lymph % (Auto) 19.9 L (20-40) % [place] % (Auto) 19.7 H (2-11) % Eos % (Auto) 0.0 (0-4) % Baso % (Auto) 0.2 (0-2) % Lymph # (Auto) 1.0 L (1.2-4.9) X10*3/uL [place] # (Auto) 1.0 (0.1-1.2) X10*3/uL Eos # (Auto) 0.0 (0.0-0.4) X10*3/uL Baso # (Auto) 0.0 (0.0-0.2) X10*3/uL Abs Immat Gran (auto) 0.02 (0.00-0.03) X10*3/uL Absolute Neuts (auto) 2.9 (2.0-8.3) x10*3/uL Absolute Nucleated RBC 0.000 (0.0-0.012) X10*3/uL Nucleated RBC % (auto) 0.0 (0.0-0.2) /100WBC Sodium 138 (135-145) mmol/L Potassium 3.5 (3.3-5.1) mmol/L Chloride 103 (96-108) mmol/L Carbon Dioxide 25 (22-29) mmol/L Anion Gap 14 (12-20) BUN 16 (9-16) mg/dL Creatinine 1.22 (0.5-1.4) mg/dL Estim Creat Clear Calc 68.4 Estimated GFR > 60 Random Glucose 92 (60-115) mg/dL Calcium 9.3 (8.4-10.2) mg/dL Total Bilirubin 0.8 (0.0-1.0) mg/dL Direct Bilirubin 0.3 (0.0-0.5) mg/dL AST 34 (5-37) U/L ALT 16 (0-40) U/L Alkaline Phosphatase 81 (39-117) U/L Troponin I High Sens 20.4 20.4 (<3.5-35.0) ng/L Total Protein 8.3 H (6.5-8.0) g/dL Albumin 4.1 (3.5-5.0) g/dL Lipase 23 (8-78) U/L Influenza Type A (PCR) POSITIVE A (Negative) Influenza Type B (PCR) NEGATIVE (Negative) RSV RNA Qual (PCR) NEGATIVE (Negative) SARS-CoV-2 RNA (RT-PCR) NEGATIVE (Negative) Discharge Plan Discharge Clinical Impression: Atypical chest pain Patient Disposition: Home, Self-Care Additional Instructions: Please follow up with your primary care provider next 24-48 hours for reassessment. If you develop any new or worsening symptoms please return to the emergency department Prescriptions: New famotidine [Pepcid] 20 mg tablet 20 mg PO DAILY 30 Days Qty: 30 0RF No Action ibuprofen 800 mg tablet 800 mg PO Q8H PRN (Reason: pain) Qty: 30 0RF prednisone 20 mg tablet 40 mg PO DAILY 5 Days Qty: 10 0RF hydrocortisone 2.5 % ointment 1 appl topical QD-TID PRN (Reason: skin irritation) Qty: 454 0RF lisinopril-hydrochlorothiazide 10-12.5 mg tablet 1 tab PO DAILY Qty: 30 0RF dicyclomine 20 mg tablet 20 mg PO TID PRN (Reason: abdominal pain) Qty: 20 0RF lisinopril-hydrochlorothiazide [Zestoretic] 20-12.5 mg tablet 1 tab PO DAILY Qty: 90 1RF cyclobenzaprine 10 mg tablet 10 mg PO TID PRN (Reason: muscle spasm) Qty: 14 0RF lidocaine 5 % adhesive patch,medicated 1 patch topical DAILY Qty: 30 0RF Rx Instructions: leave on most painful area for up to 12 hrs lisinopril 20 mg tablet 20 mg PO DAILY Qty: 30 0RF azithromycin 250 mg tablet See Rx Instructions .ROUTE .COMPLEX Qty: 6 0RF Rx Instructions: For 250 mg dose pack: take 500 mg today (day 1), then 250 mg for 4 days (days 2-5) tramadol 50 mg tablet 50 mg PO Q6H PRN (Reason: pain (scale score 7-10)) Qty: 12 0RF ondansetron 4 mg tablet,disintegrating 4 mg PO Q8H PRN (Reason: nausea and vomiting) Qty: 20 0RF Print Language: Bhutanese
[2024-07-25 18:25] LABS: Influenza A PCR POSITIVE (Negative); Influenza B PCR NEGATIVE (Negative); Resp Syncy Virus RNA Qual PCR NEGATIVE (Negative); SARS COV2 PCR INHOUSE NEGATIVE (Negative)
[2024-07-25 20:45] VITALS: BP 163/92; PULSE 81; RESP 14; TEMP 36.9; O2SAT 98
[2024-07-25 20:56] VITALS: BP 163/92; PULSE 81; RESP 14; TEMP 36.9; O2SAT 98
== END 2024-07-25 20:56 | disposition home or self-care (01) ==
PROVIDERS: Physician Assistant; Emergency Provider Student in an Organized Health Care Education/Training Program
DX: R07.89 Other chest pain (principal); R10.13 Epigastric pain; Z79.899 Other long term (current) drug therapy; Z03.818 Encounter for observation for suspected exposure to other biological agents ruled out
CPT/HCPCS: 0241U; 36415; 71045; 80048; 80076; 83690; 84484; 85025; 93005; 99283; 99284

== ENCOUNTER → 2024-07-25 08:30 | Outpatient (BNV) | payer OTHER, SELFPAY | PROVIDERS: Emergency Provider Student in an Organized Health Care Education/Training Program; Visit Provider Internal Medicine Cardiovascular Disease | DX: I51.7 Cardiomegaly (principal) | CPT/HCPCS: 93010 ==

== ENCOUNTER → 2024-07-25 08:53 | Outpatient (BNV) | payer OTHER, SELFPAY | PROVIDERS: Visit Provider Radiology Diagnostic Radiology | DX: R07.1 Chest pain on breathing (principal) | CPT/HCPCS: 71045 ==

== ENCOUNTER 2025-01-13 15:29 | Emergency (ER) | payer SELFPAY ==
--- NOTE | ~2025-01-13 | CT_ITS ---
EXAMINATION: CT HEAD WITHOUT CONTRAST CLINICAL INFORMATION: The revision, dizziness COMPARISON: September 12, 2023 TECHNIQUE: Contiguous axial imaging was performed from the skull base to vertex without intravenous administration of contrast. This CT examination was performed using dose optimization techniques as appropriate, variously including the following: *Automated exposure control *Adjustment of mA and/or kV according to patient size (this includes techniques or standardized protocols for targeted exams where dose is matched to indication/reason for exam; i.e. extremities or head) *Use of iterative reconstruction technique DLP: 713 mGY*cm FINDINGS: There is no acute ischemic change. Chronic periventricular and left occipital white matter hypodensities are again noted. There is no intracranial hemorrhage. There is no mass-effect or midline shift. Basal cisterns and ventricles are within normal limits for age/cerebral volume. Orbits are symmetrical and unremarkable. Chronic mild mucosal thickening is again noted in the left greater than right maxillary sinuses. There are no bony abnormalities. CT/CT head/brain wo IV con IMPRESSION: No acute intracranial abnormality. Chronic small vessel disease. Mild chronic mucosal thickening is again noted in the left greater than right maxillary sinuses. Electronically signed by: Siva Eduardo MD 01/13/2025 04:38 PM EDT
[2025-01-13 15:41] VITALS: BP 244/120; PULSE 69; RESP 18; TEMP 36.6; O2SAT 98; BMI 30.4
--- NOTE | 2025-01-13 15:42 | ECG_ITS ---
Test Reason : dizziness Blood Pressure : */* mmHG Vent. Rate : 66 BPM Atrial Rate : 66 BPM P-R Int : 158 ms QRS Dur : 88 ms QT Int : 444 ms P-R-T Axes : 35 -8 8 degrees QTcB Int : 465 ms Normal sinus rhythm Possible Left atrial enlargement Minimal voltage criteria for LVH, may be normal variant ( R in aVL ) Nonspecific T wave abnormality Prolonged QT Abnormal ECG When compared with ECG of 25-Jul-2024 08:44, No significant change was found Referred By: Nickie Farrell Electronically Signed By: RUBEN DE OLIVEIRA MD
--- NOTE | 2025-01-13 15:43 | ED.GENADULT ---
HPI - General Adult General Chief complaint: General Medical Stated complaint: Dizzy, Weak Time Seen by Provider: 01/13/25 15:51 Related Data Previous Rx's ?Medication ?Instructions ?Recorded ibuprofen 800 mg tablet 800 mg PO Q8H PRN pain #30 tabs 12/04/20 hydrocortisone 2.5 % topical 1 appl topical QD-TID PRN skin 05/29/22 ointment irritation #454 grams prednisone 20 mg tablet 40 mg (2 x 20 mg) PO DAILY 5 days 05/29/22 #10 tabs dicyclomine 20 mg tablet 20 mg PO TID PRN abdominal pain 07/02/22 #20 tabs cyclobenzaprine 10 mg tablet 10 mg PO TID PRN muscle spasm #14 02/26/23 tabs lidocaine 5 % topical patch 1 patch topical DAILY #30 ea 02/26/23 azithromycin 250 mg tablet See Rx Instructions PO .COMPLEX #6 08/08/23 tabs tramadol 50 mg tablet 50 mg PO Q6H PRN pain (scale score 08/08/23 7-10) #12 tabs ondansetron 4 mg disintegrating 4 mg PO Q8H PRN nausea and 09/13/23 tablet vomiting #20 tabs famotidine 20 mg tablet (Pepcid) 20 mg PO DAILY 30 days #30 tabs 07/25/24 amlodipine 5 mg tablet 5 mg PO DAILY 30 days #30 tabs 01/13/25 lisinopril 20 1 tab PO DAILY 30 days #30 tabs 01/13/25 mg-hydrochlorothiazide 12.5 mg tablet Allergies Allergy/AdvReac Type Severity Reaction Status Date / Time No Known Allergies Allergy Verified 01/13/25 15:43 [facility] Past Medical History Medical History Broken foot HTN (hypertension) Social History Social History Alcohol intake: never Patient Tobacco Use Status: Tobacco use Unknown Smoked in Last 30 Days: No Use of substances other than those prescribed or required for medical reasons: No Advance Directives: No Advance Directives Information Provided: No Do you have a plan to hurt others: No Plan Physical Exam ED Vital Signs: Vital Signs - 24 hr 01/13/25 15:41 01/13/25 16:43 01/13/25 17:23 Temperature 98 F 98.0 F Pulse Rate 69 64 Respiratory Rate 18 20 Blood Pressure 244/120 H 207/116 H 207/116 H Pulse Oximetry 98 98 Oxygen Delivery Method Room Air Room Air 01/13/25 17:25 01/13/25 18:15 Temperature 98.2 F Pulse Rate 75 75 Respiratory Rate 16 16 Blood Pressure 193/105 H 193/105 H Pulse Oximetry 96 96 Oxygen Delivery Method Room Air Room Air BMI result Body Mass Index 30.4 Course Course Course Narrative: This is a Rapid Medical Examination (RME) performed by Angel Luis Farrell PA-C in triage. Full HPI, ROS, assessment and treatment plan per primary provider in the Main ED. Hx: 59 yo M here for eval of dizziness (room spinning sensation) on waking this morning. hx similar. took his lisinopril this morning thinking his sx were due to his BP. assox nausea without vomiting, blurred vision. no headache or chest pain. PE/vitals: hypertensive to 244/120 - took lisinopril this morning. Plan: labs, ekg, ct Reevaluation(s) Reevaluation #1: this is a duplicate note. see dr. schwartz completed note regarding patient's visit on 01/13/25. Medications Administered Discontinued Medications Generic Name Dose Route Start Last Admin Trade Name Freq PRN Reason Stop Dose Admin Acetaminophen 650 mg 01/13/25 16:15 01/13/25 16:43 Acetaminophen 325 Mg Tablet PO 01/13/25 16:16 650 mg ONCE ONE Administration Amlodipine Besylate 5 mg 01/13/25 17:18 01/13/25 17:26 Amlodipine Besylate 5 Mg Tablet PO 01/13/25 17:19 5 mg ONCE ONE Administration Protocol Hydralazine HCl 10 mg 01/13/25 16:15 01/13/25 16:43 Hydralazine Hcl 20 Mg/Ml Vial IVPUSH 01/13/25 16:16 10 mg ONCE ONE Administration Protocol Meclizine HCl 25 mg 01/13/25 16:15 01/13/25 16:43 Meclizine Hcl 25 Mg Tablet PO 01/13/25 16:16 25 mg ONCE ONE Administration Metoprolol Tartrate 25 mg 01/13/25 17:18 01/13/25 17:26 Metoprolol Tartrate 25 Mg Tablet PO 01/13/25 17:19 25 mg ONCE ONE Administration Protocol Medical Decision Making Lab Data 01/13/25 16:02 01/13/25 16:02 Labs: Lab Results 01/13/25 Range/Units 16:02 WBC 9.6 (4.8-10.8) X10*3/uL RBC 4.94 (4.60-5.80) X10*6/uL Hgb 14.3 (14.0-18.0) g/dl Hct 43.5 (42.0-52.0) % MCV 88.1 (80.0-98.0) fL MCH 28.9 (27.0-33.0) pg MCHC 32.9 (31.0-36.0) g/dl RDW 12.3 (11.0-16.0) % Plt Count 275 (160-400) X10*3/uL MPV 10.4 (9.4-12.4) fL Immature Gran % (Auto) 0.3 (0.0-0.4) % Neut % (Auto) 86.1 H (45-73) % Lymph % (Auto) 7.3 L (20-40) % [place] % (Auto) 6.1 (2-11) % Eos % (Auto) 0.1 (0-4) % Baso % (Auto) 0.1 (0-2) % Lymph # (Auto) 0.7 L (1.2-4.9) X10*3/uL [place] # (Auto) 0.6 (0.1-1.2) X10*3/uL Eos # (Auto) 0.0 (0.0-0.4) X10*3/uL Baso # (Auto) 0.0 (0.0-0.2) X10*3/uL Abs Immat Gran (auto) 0.03 (0.00-0.03) X10*3/uL Absolute Neuts (auto) 8.2 (2.0-8.3) x10*3/uL Absolute Nucleated RBC 0.000 (0.0-0.012) X10*3/uL Nucleated RBC % (auto) 0.0 (0.0-0.2) /100WBC Sodium 139 (135-145) mmol/L Potassium 4.2 (3.3-5.1) mmol/L Chloride 103 (96-108) mmol/L Carbon Dioxide 25 (22-29) mmol/L Anion Gap 15 (12-20) BUN 12 (9-16) mg/dL Creatinine 1.00 (0.5-1.4) mg/dL Estim Creat Clear Calc 84.8 Estimated GFR > 60 Random Glucose 107 (60-115) mg/dL Calcium 9.7 (8.4-10.2) mg/dL Magnesium 1.9 (1.6-2.6) mg/dL Total Bilirubin 0.7 (0.0-1.0) mg/dL AST 22 (5-37) U/L ALT 13 (0-40) U/L Alkaline Phosphatase 97 (39-117) U/L Troponin I High Sens 4.7 D (<3.5-35.0) ng/L Total Protein 8.2 H (6.5-8.0) g/dL Albumin 4.6 (3.5-5.0) g/dL Discharge Plan Discharge Clinical Impression: Hypertension, Dizziness Patient Disposition: Home, Self-Care Instructions: Hypertension (ED) Additional Instructions: Please establish care with a primary care doctor. IT is important to have a doctor monitor your blood pressure as this can affect your kidneys bloodvessels and your heart over time. Prescriptions: New lisinopril-hydrochlorothiazide 20-12.5 mg tablet 1 tab PO DAILY 30 Days Qty: 30 0RF amlodipine 5 mg tablet 5 mg PO DAILY 30 Days Qty: 30 0RF Discontinued lisinopril-hydrochlorothiazide 10-12.5 mg tablet 1 tab PO DAILY Qty: 30 0RF lisinopril-hydrochlorothiazide [Zestoretic] 20-12.5 mg tablet 1 tab PO DAILY Qty: 90 1RF lisinopril 20 mg tablet 20 mg PO DAILY Qty: 30 0RF No Action ibuprofen 800 mg tablet 800 mg PO Q8H PRN (Reason: pain) Qty: 30 0RF prednisone 20 mg tablet 40 mg PO DAILY 5 Days Qty: 10 0RF hydrocortisone 2.5 % ointment 1 appl topical QD-TID PRN (Reason: skin irritation) Qty: 454 0RF dicyclomine 20 mg tablet 20 mg PO TID PRN (Reason: abdominal pain) Qty: 20 0RF cyclobenzaprine 10 mg tablet 10 mg PO TID PRN (Reason: muscle spasm) Qty: 14 0RF lidocaine 5 % adhesive patch,medicated 1 patch topical DAILY Qty: 30 0RF Rx Instructions: leave on most painful area for up to 12 hrs azithromycin 250 mg tablet See Rx Instructions .ROUTE .COMPLEX Qty: 6 0RF Rx Instructions: For 250 mg dose pack: take 500 mg today (day 1), then 250 mg for 4 days (days 2-5) tramadol 50 mg tablet 50 mg PO Q6H PRN (Reason: pain (scale score 7-10)) Qty: 12 0RF ondansetron 4 mg tablet,disintegrating 4 mg PO Q8H PRN (Reason: nausea and vomiting) Qty: 20 0RF famotidine [Pepcid] 20 mg tablet 20 mg PO DAILY 30 Days Qty: 30 0RF Referrals: [facility] [place] [facility] [Provider Group, Internal Medicine] Interventions: ED Discharge Assessment Last Done: 01/13/25 18:15 Discharge Date/Time: 01/13/25 18:15 Print Language: Kyrgyz
--- NOTE | 2025-01-13 15:51 | ED.GENADULT ---
HPI - General Adult General Chief complaint: General Medical Stated complaint: Dizzy, Weak Time Seen by Provider: 01/13/25 15:51 Source: patient Mode of arrival: ambulatory Limitations: no limitations History of Present Illness ED Provider: Dr. Ureña [facility] narrative: This is a 59-year-old male history of hypertension and presented hospital today for dizziness and nausea. Patient stated that this occurred suddenly this morning. He does take lisinopril for blood pressure medication does not take any other medications. Patient stated that he attempted to go to work today. However due to the dizziness he came to the ER for further evaluation. He denies any headache. Denies any vision change. Denies any weakness in his upper or lower extremities. Patient has no chest pain no shortness of breath. Denies any recent illness fever or coughing. Related Data Previous Rx's ?Medication ?Instructions ?Recorded ibuprofen 800 mg tablet 800 mg PO Q8H PRN pain #30 tabs 12/04/20 hydrocortisone 2.5 % topical 1 appl topical QD-TID PRN skin 05/29/22 ointment irritation #454 grams prednisone 20 mg tablet 40 mg (2 x 20 mg) PO DAILY 5 days 05/29/22 #10 tabs dicyclomine 20 mg tablet 20 mg PO TID PRN abdominal pain 07/02/22 #20 tabs cyclobenzaprine 10 mg tablet 10 mg PO TID PRN muscle spasm #14 02/26/23 tabs lidocaine 5 % topical patch 1 patch topical DAILY #30 ea 02/26/23 azithromycin 250 mg tablet See Rx Instructions PO .COMPLEX #6 08/08/23 tabs tramadol 50 mg tablet 50 mg PO Q6H PRN pain (scale score 08/08/23 7-10) #12 tabs ondansetron 4 mg disintegrating 4 mg PO Q8H PRN nausea and 09/13/23 tablet vomiting #20 tabs famotidine 20 mg tablet (Pepcid) 20 mg PO DAILY 30 days #30 tabs 07/25/24 amlodipine 5 mg tablet 5 mg PO DAILY 30 days #30 tabs 01/13/25 lisinopril 20 1 tab PO DAILY 30 days #30 tabs 01/13/25 mg-hydrochlorothiazide 12.5 mg tablet Allergies Allergy/AdvReac Type Severity Reaction Status Date / Time No Known Allergies Allergy Verified 01/13/25 15:43 Review of Systems Review of Systems: Pertinent review of system as mentioned in [facility] all other system otherwise negative. [facility] Past Medical History [facility] Narrative: Medical history as mentioned in [facility] Medical History Broken foot HTN (hypertension) Social History Social History Alcohol intake: never Patient Tobacco Use Status: Tobacco use Unknown Smoked in Last 30 Days: No Use of substances other than those prescribed or required for medical reasons: No Advance Directives: No Advance Directives Information Provided: No Do you have a plan to hurt others: No Plan Physical Exam ED Exam Exam: General: Pleasant, no distress, interacting appropriately Head: Normacephalic, atraumatic ENT: oral mucosa moist, neck supple, no tracheal deviation Cardiovascular: regular rate, regular rhythm, no murmurs, rubbing, gallops Respiratory: CTAB, no wheeze, rales, rhonchi Extremities: No limb pain or swelling, no calf tenderness Neurological: Awake and alert, no facial droop noted, equal strength in bilateral upper and lower extremity, no sign of ataxia on [id number], sensation is intact bilaterally, no sign of focal neurological deficit Skin: Warm and dry Psychiatric: Appropriate mood and thoughts Vital Signs: Vital Signs - 24 hr 01/13/25 15:41 01/13/25 16:43 01/13/25 17:23 Temperature 98 F 98.0 F Pulse Rate 69 64 Respiratory Rate 18 20 Blood Pressure 244/120 H 207/116 H 207/116 H Pulse Oximetry 98 98 Oxygen Delivery Method Room Air Room Air 01/13/25 17:25 Temperature Pulse Rate 75 Respiratory Rate 16 Blood Pressure 193/105 H Pulse Oximetry 96 Oxygen Delivery Method Room Air BMI result Body Mass Index 30.4 Medications Administered Discontinued Medications Generic Name Dose Route Start Last Admin Trade Name Freq PRN Reason Stop Dose Admin Acetaminophen 650 mg 01/13/25 16:15 01/13/25 16:43 Acetaminophen 325 Mg Tablet PO 01/13/25 16:16 650 mg ONCE ONE Administration Amlodipine Besylate 5 mg 01/13/25 17:18 01/13/25 17:26 Amlodipine Besylate 5 Mg Tablet PO 01/13/25 17:19 5 mg ONCE ONE Administration Protocol Hydralazine HCl 10 mg 01/13/25 16:15 01/13/25 16:43 Hydralazine Hcl 20 Mg/Ml Vial IVPUSH 01/13/25 16:16 10 mg ONCE ONE Administration Protocol Meclizine HCl 25 mg 01/13/25 16:15 01/13/25 16:43 Meclizine Hcl 25 Mg Tablet PO 01/13/25 16:16 25 mg ONCE ONE Administration Metoprolol Tartrate 25 mg 01/13/25 17:18 01/13/25 17:26 Metoprolol Tartrate 25 Mg Tablet PO 01/13/25 17:19 25 mg ONCE ONE Administration Protocol Medical Decision Making Medical Decision Making [facility] Narrative: This is a 59-year-old male presented hospital today for evaluation of hypertension in the setting of dizziness and nausea. Does not have any abdominal pain. However had does complain of dizziness. The patient's blood pressure is elevated 220 systolic at this time. We will plan to give patient some IV hydralazine. Not complained of any chest pain we will obtain a screening EKG. Basic lab work will be obtained as well. CT head has been ordered by provider seen patient previously. We will assess for any signs of intracranial hemorrhage. Meclizine p.o. will be provided for vertiginous symptoms. He denies this as a continuous vertiginous symptoms. Is worsened with movement. This may be underlying vertigo. Tylenol will be given to him as well. We will closely monitor patient's blood pressure at this time. No neurological symptoms on exam. Low suspicion of CVA. On reassessment patient blood pressure is [address] head negative for any signs of intracranial bleed. We will trial p.o. amlodipine and p.o. metoprolol. Patient's lab work is unremarkable. No signs of end-organ damage. No sign of acute kidney injury, no elevated troponin. No signs of transaminitis. On reassessment patient's blood pressure has improved. Systolic blood pressure is 177 at this time. Patient is no longer dizzy. He does have a headache. Discussed with patient about hypertension management. Patient states he does not have a primary care doctor. I will plan to send a referral for primary care doctor for the patient. We will also refill his lisinopril. I will also plan to start him on a dose of 5 mg of amlodipine p.o. to take. Encouraged the patient to establish care with a primary care doctor. Patient agrees and understands this plan. All questions were addressed Differential Diagnosis Differential Diagnoses: The differential diagnosis associated with the presentation includes Hypertensive crisis, hypertensive emergency, hypertension, Vertigo, CVA Lab Data MDM Lab Attestation statement: I reviewed the patient's lab results. 01/13/25 16:02 01/13/25 16:02 Labs: Lab Results 01/13/25 Range/Units 16:02 WBC 9.6 (4.8-10.8) X10*3/uL RBC 4.94 (4.60-5.80) X10*6/uL Hgb 14.3 (14.0-18.0) g/dl Hct 43.5 (42.0-52.0) % MCV 88.1 (80.0-98.0) fL MCH 28.9 (27.0-33.0) pg MCHC 32.9 (31.0-36.0) g/dl RDW 12.3 (11.0-16.0) % Plt Count 275 (160-400) X10*3/uL MPV 10.4 (9.4-12.4) fL Immature Gran % (Auto) 0.3 (0.0-0.4) % Neut % (Auto) 86.1 H (45-73) % Lymph % (Auto) 7.3 L (20-40) % [place] % (Auto) 6.1 (2-11) % Eos % (Auto) 0.1 (0-4) % Baso % (Auto) 0.1 (0-2) % Lymph # (Auto) 0.7 L (1.2-4.9) X10*3/uL [place] # (Auto) 0.6 (0.1-1.2) X10*3/uL Eos # (Auto) 0.0 (0.0-0.4) X10*3/uL Baso # (Auto) 0.0 (0.0-0.2) X10*3/uL Abs Immat Gran (auto) 0.03 (0.00-0.03) X10*3/uL Absolute Neuts (auto) 8.2 (2.0-8.3) x10*3/uL Absolute Nucleated RBC 0.000 (0.0-0.012) X10*3/uL Nucleated RBC % (auto) 0.0 (0.0-0.2) /100WBC Sodium 139 (135-145) mmol/L Potassium 4.2 (3.3-5.1) mmol/L Chloride 103 (96-108) mmol/L Carbon Dioxide 25 (22-29) mmol/L Anion Gap 15 (12-20) BUN 12 (9-16) mg/dL Creatinine 1.00 (0.5-1.4) mg/dL Estim Creat Clear Calc 84.8 Estimated GFR > 60 Random Glucose 107 (60-115) mg/dL Calcium 9.7 (8.4-10.2) mg/dL Magnesium 1.9 (1.6-2.6) mg/dL Total Bilirubin 0.7 (0.0-1.0) mg/dL AST 22 (5-37) U/L ALT 13 (0-40) U/L Alkaline Phosphatase 97 (39-117) U/L Troponin I High Sens 4.7 D (<3.5-35.0) ng/L Total Protein 8.2 H (6.5-8.0) g/dL Albumin 4.6 (3.5-5.0) g/dL Independent Interpretation I performed an independent interpretation of an: EKG and CT Scan Radiology Impression Discussion of test interpretation with radiology: I have reviewed the radiologist's reading. Discharge Plan Discharge Clinical Impression: Hypertension, Dizziness Patient Disposition: Home, Self-Care Instructions: Hypertension (ED) Additional Instructions: Please establish care with a primary care doctor. IT is important to have a doctor monitor your blood pressure as this can affect your kidneys bloodvessels and your heart over time. Prescriptions: New lisinopril-hydrochlorothiazide 20-12.5 mg tablet 1 tab PO DAILY 30 Days Qty: 30 0RF amlodipine 5 mg tablet 5 mg PO DAILY 30 Days Qty: 30 0RF Discontinued lisinopril-hydrochlorothiazide 10-12.5 mg tablet 1 tab PO DAILY Qty: 30 0RF lisinopril-hydrochlorothiazide [Zestoretic] 20-12.5 mg tablet 1 tab PO DAILY Qty: 90 1RF lisinopril 20 mg tablet 20 mg PO DAILY Qty: 30 0RF No Action ibuprofen 800 mg tablet 800 mg PO Q8H PRN (Reason: pain) Qty: 30 0RF prednisone 20 mg tablet 40 mg PO DAILY 5 Days Qty: 10 0RF hydrocortisone 2.5 % ointment 1 appl topical QD-TID PRN (Reason: skin irritation) Qty: 454 0RF dicyclomine 20 mg tablet 20 mg PO TID PRN (Reason: abdominal pain) Qty: 20 0RF cyclobenzaprine 10 mg tablet 10 mg PO TID PRN (Reason: muscle spasm) Qty: 14 0RF lidocaine 5 % adhesive patch,medicated 1 patch topical DAILY Qty: 30 0RF Rx Instructions: leave on most painful area for up to 12 hrs azithromycin 250 mg tablet See Rx Instructions .ROUTE .COMPLEX Qty: 6 0RF Rx Instructions: For 250 mg dose pack: take 500 mg today (day 1), then 250 mg for 4 days (days 2-5) tramadol 50 mg tablet 50 mg PO Q6H PRN (Reason: pain (scale score 7-10)) Qty: 12 0RF ondansetron 4 mg tablet,disintegrating 4 mg PO Q8H PRN (Reason: nausea and vomiting) Qty: 20 0RF famotidine [Pepcid] 20 mg tablet 20 mg PO DAILY 30 Days Qty: 30 0RF Referrals: [facility] [place] [facility] [Provider Group, Internal Medicine] Print Language: Hungarian
[2025-01-13 16:08] LABS: MANUAL DIFF FLAG NO
[2025-01-13 16:09] LABS: Hematocrit 43.5 % (42.0-52.0); Hemoglobin 14.3 g/dl (14.0-18.0); Imm Gran Abs Auto 0.03 X10*3/uL (0.00-0.03); Imm Gran Pct Auto 0.3 % (0.0-0.4); Lymphocytes Absolute Auto 0.7 X10*3/uL (1.2-4.9); Mean Corpuscular HGB Conc 32.9 g/dl (31.0-36.0); Mean Corpuscular Hemoglobin 28.9 pg (27.0-33.0); Mean Corpuscular Volume 88.1 fL (80.0-98.0); NRBC Abs Auto 0.000 X10*3/uL (0.0-0.012); NRBC Pct Auto 0.0 /100WBC (0.0-0.2); Platelet Count 275 X10*3/uL (160-400); Red Blood Count 4.94 X10*6/uL (4.60-5.80); White Blood Count 9.6 X10*3/uL (4.8-10.8)
[2025-01-13 16:26] LABS: Alanine Aminotransferase 13 U/L (0-40); Albumin Level 4.6 g/dL (3.5-5.0); Alkaline Phosphatase 97 U/L (39-117); Anion Gap 15 (12-20); Aspartate Amino Transferase 22 U/L (5-37); Blood Urea Nitrogen 12 mg/dL (9-16); Calcium 9.7 mg/dL (8.4-10.2); Carbon Dioxide 25 mmol/L (22-29); Chloride 103 mmol/L (96-108); Creatinine Clr Calc Pharmacy 84.8; Estimated Glomerular Filt Rate > 60; Magnesium 1.9 mg/dL (1.6-2.6); Potassium 4.2 mmol/L (3.3-5.1); Sodium 139 mmol/L (135-145); Total Protein 8.2 g/dL (6.5-8.0)
[2025-01-13 16:29] LABS: Troponin-I High Sensitivity 4.7 ng/L (<3.5-35.0)
[2025-01-13 16:43] VITALS: BP 207/116
[2025-01-13 17:23] VITALS: BP 207/116; PULSE 64; RESP 20; TEMP 36.7; O2SAT 98
[2025-01-13 17:25] VITALS: BP 193/105; PULSE 75; RESP 16; O2SAT 96
[2025-01-13 18:15] VITALS: BP 193/105; PULSE 75; RESP 16; TEMP 36.8; O2SAT 96
== END 2025-01-13 18:15 | disposition home or self-care (01) ==
PROVIDERS: Physician Assistant Medical; Emergency Provider Student in an Organized Health Care Education/Training Program
DX: R42 Dizziness and giddiness (principal); I10 Essential (primary) hypertension; R11.0 Nausea; Z79.899 Other long term (current) drug therapy
CPT/HCPCS: 36415; 70450; 80053; 83735; 84484; 85025; 93005; 96374; 99284; J0360

== ENCOUNTER → 2025-01-13 15:42 | Outpatient (BNV) | payer OTHER, SELFPAY | PROVIDERS: Emergency Provider Student in an Organized Health Care Education/Training Program; Visit Provider Internal Medicine Cardiovascular Disease | DX: R94.31 Abnormal electrocardiogram [ECG] [EKG] (principal); R42 Dizziness and giddiness | CPT/HCPCS: 93010 ==

== ENCOUNTER → 2025-01-13 15:42 | Outpatient (BNV) | payer SELFPAY | PROVIDERS: Emergency Provider Student in an Organized Health Care Education/Training Program; Visit Provider Radiology Diagnostic Radiology | DX: R42 Dizziness and giddiness (principal) | CPT/HCPCS: 70450 ==